=== PATIENT | female | born 1950 | race Caucasian/White ===

== ENCOUNTER 2017-07-04 09:10 | Emergency (ER) | payer MEDICARE ==
[~2017-07-04 09:10] MED LIST: Sodium Chloride 0.9% 1,000 ML BAG ONE
[2017-07-04 10:42] LABS: #Basophils 0.1 thou/uL (0.0-0.2); #Eosinphils 0.1 thou/uL (0.0-0.7); #Lymphocytes 1.2 thou/uL (1.20-3.40); #Neutrophils 6.1 thou/uL (1.40-6.50); %Eosinophils 1.1 % (0.0-10.0); %Lymphocytes 13.9 % (21.0-51.0); %Monocytes 11.4 % (0.0-10.0); %Neutrophils 72.7 % (42.0-75.0); Hemoglobin 14.2 g/dL (12.0-16.0); Mean Corpuscular HGB CONC 31.4 g/dL (32.0-36.0); Mean Corpuscular Hemoglobin 28.6 pg (27.0-31.0); Mean Corpuscular Volume 91.1 fl (81.0-99.0); Mean Platelet Volume 8.3 fL (7.4-10.4); Platelet Count 221 thou/uL (130-400); RBC Distribution Width 16.3 % (11.5-14.5); Red Blood Cell (RBC) Count 4.97 mill/uL (4.20-5.40); White Blood Cell (WBC) Count 8.4 thou/uL (4.8-10.8)
[2017-07-04 10:47] LABS: Bilirubin Large (Negative); Blood, Urine Negative (Negative); Clarity Clear (Clear); Glucose, Urine (Dipstick) Negative (Negative); Leukocyte Negative (Negative); Nitrite Negative (Negative); Protein, Urine (Dipstick) 30 mg/dL (Neg-Trace); RBC/HPF 0-3 HPF (0-3)
--- NOTE | 2017-07-04 10:47 | RAD ---
PORTABLE AP CHEST XRAY: DATE: 07/04/17. HISTORY: Altered mental status. COMPARISON: 06/24/05. FINDINGS: Cardiac silhouette is magnified by projection. Pulmonary vasculature is within normal limits. The lungs are clear. The osseous structures are intact. IMPRESSION: No acute cardiopulmonary process. POS: [facility]
[2017-07-04 10:48] LABS: WBC/HPF 0-3 HPF (0-3)
[2017-07-04 10:49] LABS: Bacteria/HPF Rare-Few HPF (None Seen)
[2017-07-04 11:08] LABS: ALT (SGPT) 21 U/L (8-55); AST (SGOT) 21 U/L (5-34); Albumin 3.7 g/dL (3.4-4.8); Alkaline Phosphatase 146 U/L (40-150); Anion Gap 17 mmol/L (10-20); BUN (Urea Nitrogen) 12 mg/dL (9.8-20.1); Bilirubin, Total 1.7 mg/dL (0.2-1.2); CK (CPK) 24 U/L (29-168); Calc. Creatinine Clearance 0 mL/min (70-130); Calcium 9.8 mg/dL (7.8-10.44); Carbon Dioxide 23 mmol/L (23-31); Chloride 105 mmol/L (98-107); Estimated GFR-MDRD 84; Globulin 2.9 g/dL (2.4-3.5); Glucose 98 mg/dL (80-115); Lipase 23 U/L (8-78); Protein, Total 6.6 g/dL (6.0-8.3); Sodium 142 mmol/L (136-145)
[2017-07-04 11:19] LABS: Potassium 2.7 mmol/L (3.5-5.1)
[2017-07-04 11:21] LABS: Troponin I Less than 0.010 ng/mL (< 0.028)
[2017-07-04] MEDS ORDERED: NS 0.9% w/ 40 MEQ KCL 1,000 ML IV ONE (12:04)
[2017-07-04] MEDS ORDERED: Ondansetron HCl/PF 4 MG/2 ML Vial ONE (12:06)
[2017-07-04] MEDS ORDERED: Potassium Chloride 20 MEQ TAB ONE (12:06)
--- NOTE | 2017-07-04 13:33 | CT ---
HEAD CT WITHOUT CONTRAST: DATE: 07/04/17. COMPARISON: None. HISTORY: Altered mental status, falls. TECHNIQUE: Serial axial CT imaging at 5 mm intervals from vertex through the skull base without contrast. FINDINGS: Imaged paranasal sinuses/mastoid air cells appear well aerated. There is no displaced calvarial fra cture. No intracranial hemorrhage, midline shift, mass effect, or ventricular enlargement. Dural c alcification is noted in the posterior fossa. There is atherosclerotic calcification of the caverno us carotid arteries and distal vertebral arteries. IMPRESSION: No intracranial hemorrhage or displaced calvarial fracture. POS: [facility]
== END 2017-07-04 18:00 | disposition home or self-care (01) ==
LOC: MADERS 09:10
DX: E87.6 Hypokalemia (principal); J44.9 Chronic obstructive pulmonary disease, unspecified; E10.9 Type 1 diabetes mellitus without complications; I10 Essential (primary) hypertension
CPT/HCPCS: 36415; 51701; 70450; 71010; 80053; 81001; 82150; 82553; 83690; 84443; 84484; 85025; 87040; 87086; 93005; 96374; A4353; J2405; J7050

== ENCOUNTER 2017-08-11 12:00 | Emergency (ER) | payer MEDICARE ==
[2017-08-11] MEDS ORDERED: Dextrose 50% Abboject 50 ML SYRINGE ONE (12:21)
[2017-08-11 13:04] LABS: #Basophils 0.1 thou/uL (0.0-0.2); #Eosinphils 0.1 thou/uL (0.0-0.7); #Lymphocytes 1.2 thou/uL (1.20-3.40); #Monocytes 0.6 thou/uL (0.11-0.59); #Neutrophils 5.6 thou/uL (1.40-6.50); %Basophils 0.9 % (0.0-1.0); %Eosinophils 0.8 % (0.0-10.0); %Lymphocytes 15.5 % (21.0-51.0); %Monocytes 8.3 % (0.0-10.0); %Neutrophils 74.4 % (42.0-75.0); Hemoglobin 14.7 g/dL (12.0-16.0); Mean Corpuscular HGB CONC 31.5 g/dL (32.0-36.0); Mean Platelet Volume 7.7 fL (7.4-10.4); Platelet Count 247 thou/uL (130-400); RBC Distribution Width 17.5 % (11.5-14.5); Red Blood Cell (RBC) Count 5.09 mill/uL (4.20-5.40); White Blood Cell (WBC) Count 7.5 thou/uL (4.8-10.8)
[2017-08-11 13:15] LABS: Anion Gap 19 mmol/L (10-20); BUN (Urea Nitrogen) 31 mg/dL (9.8-20.1); Calc. Creatinine Clearance 0 mL/min (70-130); Calcium 10.3 mg/dL (7.8-10.44); Carbon Dioxide 24 mmol/L (23-31); Chloride 105 mmol/L (98-107); Estimated GFR-MDRD 54; Potassium 4.2 mmol/L (3.5-5.1); Sodium 144 mmol/L (136-145)
[2017-08-11 13:19] LABS: Glucose 25 mg/dL (80-115)
== END 2017-08-11 14:03 | disposition home or self-care (01) ==
LOC: MADERS 12:00
DX: E10.649 Type 1 diabetes mellitus with hypoglycemia without coma (principal); J44.9 Chronic obstructive pulmonary disease, unspecified; I10 Essential (primary) hypertension
CPT/HCPCS: 36416; 80048; 85025; 96374

== ENCOUNTER 2017-08-20 09:21 | Emergency (ER) | payer MEDICARE ==
[2017-08-20] MEDS ORDERED: Dextrose 50% Abboject 50 ML SYRINGE ONE ×2 (09:47→11:03)
[2017-08-20 10:06] LABS: Band 1 % (5-11); Hemoglobin 16.3 g/dL (12.0-16.0); Lymphocytes 18 % (21-51); MDiff Complete? YES; Mean Corpuscular HGB CONC 32.8 g/dL (32.0-36.0); Mean Corpuscular Hemoglobin 29.8 pg (27.0-31.0); Mean Platelet Volume 8.3 fL (7.4-10.4); Monocytes 9 % (0-10); Neutrophil 72 % (42-75); PLT Morphology Comment Appears Adequate; Platelet Count 233 thou/uL (130-400); RBC Distribution Width 17.6 % (11.5-14.5); Red Blood Cell (RBC) Count 5.45 mill/uL (4.20-5.40); White Blood Cell (WBC) Count 12.8 thou/uL (4.8-10.8)
[2017-08-20 10:20] LABS: ALT (SGPT) 157 U/L (8-55); AST (SGOT) 66 U/L (5-34); Albumin 3.8 g/dL (3.4-4.8); Alkaline Phosphatase 180 U/L (40-150); Anion Gap 19 mmol/L (10-20); BUN (Urea Nitrogen) 43 mg/dL (9.8-20.1); Bilirubin, Total 0.6 mg/dL (0.2-1.2); CK (CPK) 15 U/L (29-168); CRP (Inflammatory) Less than 0.50 mg/dL (= or < 0.5); Calc. Creatinine Clearance 0 mL/min (70-130); Calcium 10.8 mg/dL (7.8-10.44); Carbon Dioxide 24 mmol/L (23-31); Chloride 103 mmol/L (98-107); Estimated GFR-MDRD 52; Globulin 2.8 g/dL (2.4-3.5); Lipase 67 U/L (8-78); Potassium 5.1 mmol/L (3.5-5.1); Protein, Total 6.6 g/dL (6.0-8.3); Sodium 141 mmol/L (136-145)
[2017-08-20 10:22] LABS: CKMB 1.4 ng/mL (0-6.6); Troponin I Less than 0.010 ng/mL (< 0.028)
--- NOTE | 2017-08-20 10:36 | RAD ---
CHEST ONE VIEW HISTORY: Hypoglycemia. Dyspnea. COMPARISON: 07/04/2017 FINDINGS: Cardiac silhouette is magnified by projection. Shallow inspiration accentuates pulmonary markings. There is no lobar consolidation or evidence of pneumothorax. IMPRESSION: No active cardiopulmonary abnormalities are demonstrated. POS: [facility]
[2017-08-20 10:37] LABS: Glucose 36 mg/dL (80-115)
[2017-08-20 10:42] LABS: Bilirubin Negative (Negative); Blood, Urine Negative (Negative); Clarity Hazy (Clear); Glucose, Urine (Dipstick) Negative (Negative); Leukocyte Small (Negative); Nitrite Negative (Negative); Protein, Urine (Dipstick) Negative (Neg-Trace); RBC/HPF 0-3 HPF (0-3); Specific Gravity, Urine 1.015 (1.005-1.030); Urobilinogen 0.2 mg/dL (0.2-1.0); pH, Urine 7.5 (5.0-9.0)
[2017-08-20 10:43] LABS: Bacteria/HPF 3+ HPF (None Seen)
[2017-08-20 11:08] LABS: PTT 24.5 SEC (22.9-36.1); Prothrombin Time 13.1 SEC (12.0-14.7)
[2017-08-20] MEDS ORDERED: Nitrofurantoin Monohyd/M-Cryst 100 MG CAP ONE (11:11)
== END 2017-08-20 12:12 | disposition short-term general hospital (02) ==
LOC: MADERS 09:21
DX: E10.649 Type 1 diabetes mellitus with hypoglycemia without coma (principal); N39.0 Urinary tract infection, site not specified; I10 Essential (primary) hypertension; I25.10 Atherosclerotic heart disease of native coronary artery without angina pectoris; M10.9 Gout, unspecified; J44.9 Chronic obstructive pulmonary disease, unspecified; Z79.899 Other long term (current) drug therapy
CPT/HCPCS: 36416; 51701; 71010; 80053; 81001; 82150; 82550; 82553; 83690; 83880; 84443; 84484; 85025; 85610; 85730; 86140; 87040; 87077; 87086; 87149; 87186; 93005; 96374; 96376; A4353

== ENCOUNTER 2017-11-07 12:02 | Outpatient (CLI) | payer MEDICARE ==
[2017-11-07 13:38] LABS: #Eosinphils 0.1 thou/uL (0.0-0.7); #Lymphocytes 1.2 thou/uL (1.20-3.40); #Monocytes 0.5 thou/uL (0.11-0.59); #Neutrophils 2.7 thou/uL (1.40-6.50); %Basophils 0.4 % (0.0-1.0); %Lymphocytes 26.5 % (21.0-51.0); %Monocytes 10.4 % (0.0-10.0); %Neutrophils 60.8 % (42.0-75.0); Hemoglobin 12.7 g/dL (12.0-16.0); Mean Corpuscular HGB CONC 31.6 g/dL (32.0-36.0); Mean Corpuscular Hemoglobin 30.4 pg (27.0-31.0); Mean Corpuscular Volume 96.2 fl (81.0-99.0); Platelet Count 190 thou/uL (130-400); RBC Distribution Width 14.7 % (11.5-14.5); Red Blood Cell (RBC) Count 4.17 mill/uL (4.20-5.40); White Blood Cell (WBC) Count 4.5 thou/uL (4.8-10.8)
[2017-11-07 13:50] LABS: ALT (SGPT) 18 U/L (8-55); AST (SGOT) 14 U/L (5-34); Albumin 3.8 g/dL (3.4-4.8); Alkaline Phosphatase 115 U/L (40-150); Anion Gap 14 mmol/L (10-20); BUN (Urea Nitrogen) 14 mg/dL (9.8-20.1); Bilirubin, Total 0.8 mg/dL (0.2-1.2); Calc. Creatinine Clearance 0 mL/min (70-130); Calcium 9.6 mg/dL (7.8-10.44); Carbon Dioxide 24 mmol/L (23-31); Chloride 108 mmol/L (98-107); Estimated GFR-MDRD 69; Globulin 2.6 g/dL (2.4-3.5); Glucose 112 mg/dL (80-115); Potassium 3.3 mmol/L (3.5-5.1); Protein, Total 6.4 g/dL (6.0-8.3); Sodium 143 mmol/L (136-145)
== END 2017-11-07 12:03 | disposition home or self-care (01) ==
LOC: MADLAB 12:02
PROVIDERS: ATTEND Pediatrics
DX: E87.6 Hypokalemia (principal); I11.0 Hypertensive heart disease with heart failure; I50.9 Heart failure, unspecified
CPT/HCPCS: 36415; 80053; 85025

== ENCOUNTER 2017-12-27 11:42 | Outpatient (CLI) | payer MEDICARE ==
[2017-12-27 11:49] LABS: Anion Gap 15 mmol/L (10-20); BUN (Urea Nitrogen) 14 mg/dL (9.8-20.1); Calc. Creatinine Clearance 0 mL/min (70-130); Carbon Dioxide 25 mmol/L (23-31); Chloride 108 mmol/L (98-107); Estimated GFR-MDRD 72; Glucose 103 mg/dL (80-115); Potassium 3.4 mmol/L (3.5-5.1); Sodium 145 mmol/L (136-145)
[2017-12-27 11:50] LABS: #Eosinphils 0.1 thou/uL (0.0-0.7); #Lymphocytes 0.8 thou/uL (1.20-3.40); #Monocytes 0.5 thou/uL (0.11-0.59); #Neutrophils 2.5 thou/uL (1.40-6.50); %Basophils 0.4 % (0.0-1.0); %Lymphocytes 20.5 % (21.0-51.0); %Monocytes 11.7 % (0.0-10.0); %Neutrophils 65.5 % (42.0-75.0); Hemoglobin 13.4 g/dL (12.0-16.0); Mean Corpuscular Hemoglobin 30.5 pg (27.0-31.0); Mean Corpuscular Volume 95.4 fl (81.0-99.0); Mean Platelet Volume 9.2 fL (7.4-10.4); Platelet Count 162 thou/uL (130-400); RBC Distribution Width 13.4 % (11.5-14.5); Red Blood Cell (RBC) Count 4.39 mill/uL (4.20-5.40); White Blood Cell (WBC) Count 3.8 thou/uL (4.8-10.8)
== END 2017-12-27 11:43 | disposition home or self-care (01) ==
LOC: MADLAB 11:42
PROVIDERS: ATTEND Pediatrics
DX: I50.9 Heart failure, unspecified (principal); E11.42 Type 2 diabetes mellitus with diabetic polyneuropathy; Z79.82 Long term (current) use of aspirin
CPT/HCPCS: 36415; 80048; 85025

== ENCOUNTER 2018-06-26 17:28 | Inpatient (IN) | payer MEDICARE ==
[~2018-06-26 17:28] MED LIST changes: +Dextrose 5 %-0.45 % NaCl 1000 ml Bag ONE; -Sodium Chloride 0.9% 1,000 ML BAG ONE
[2018-06-26 18:51] LABS: #Basophils 0.1 thou/uL (0.0-0.2); #Eosinphils 0.1 thou/uL (0.0-0.7); #Monocytes 0.9 thou/uL (0.11-0.59); #Neutrophils 7.6 thou/uL (1.40-6.50); %Basophils 0.5 % (0.0-1.0); %Eosinophils 0.8 % (0.0-10.0); %Lymphocytes 10.2 % (21.0-51.0); %Neutrophils 79.6 % (42.0-75.0); Hemoglobin 14.9 g/dL (12.0-16.0); Mean Corpuscular HGB CONC 32.4 g/dL (32.0-36.0); Mean Corpuscular Hemoglobin 30.3 pg (27.0-31.0); Mean Corpuscular Volume 93.7 fL (78.0-98.0); Mean Platelet Volume 7.4 fL (7.4-10.4); Platelet Count 233 thou/uL (130-400); White Blood Cell (WBC) Count 9.6 thou/uL (4.8-10.8)
[2018-06-26 19:05] LABS: ALT (SGPT) 16 U/L (8-55); AST (SGOT) 16 U/L (5-34); Albumin 4.2 g/dL (3.4-4.8); Alkaline Phosphatase 158 U/L (40-150); Anion Gap 14 mmol/L (10-20); BUN (Urea Nitrogen) 59 mg/dL (9.8-20.1); Bilirubin, Total 0.5 mg/dL (0.2-1.2); Calc. Creatinine Clearance 0 mL/min (70-130); Carbon Dioxide 26 mmol/L (23-31); Chloride 107 mmol/L (98-107); Estimated GFR-MDRD 34; Globulin 3.2 g/dL (2.4-3.5); Potassium 4.4 mmol/L (3.5-5.1); Protein, Total 7.4 g/dL (6.0-8.3); Sodium 143 mmol/L (136-145)
[2018-06-26 19:16] LABS: Glucose 46 mg/dL (80-115)
[2018-06-26] MEDS ORDERED: Dextrose 50% Abboject 50 ML SYRINGE ONE (19:19)
[2018-06-26] MEDS ORDERED: Enoxaparin Sodium 40 MG/0.4 ML SYRINGE ONE (22:18)
[2018-06-26] MEDS ORDERED: Gabapentin 100 MG CAP ONE ×2 (22:59→23:25)
[2018-06-26] MEDS ORDERED: Gabapentin 300 MG CAP PO SCH (23:15)
[2018-06-27] MEDS ORDERED: Ondansetron ODT 4 MG TAB PO PRN (01:06)
[2018-06-27] MEDS ORDERED: Bisacodyl 5 MG TAB PO PRN (01:06)
[2018-06-27] MEDS ORDERED: Bisacodyl 10 MG SUPP PR PRN (01:06)
[2018-06-27] MEDS ORDERED: Promethazine 25 MG TAB PO PRN (01:16)
[2018-06-27] MEDS: Acetaminophen 325 MG TAB PO PRN ×3 (01:18→18:11)
[2018-06-27] MEDS: HYDROcodone/Acetaminophen 5/325 mg Tablet PO PRN ×3 (03:34→23:40)
[2018-06-27] MEDS: Dextrose 5 %-0.45 % NaCl 1,000 ML IV SCH ×3 (03:48→13:07)
[2018-06-27] MEDS: Levothyroxine Sodium 50 MCG TAB PO SCH (06:05)
[2018-06-27] MEDS ORDERED: Spironolactone 25 MG TAB PO SCH (08:00)
[2018-06-27] MEDS ORDERED: predniSONE 5 MG TAB PO SCH (08:00)
[2018-06-27] MEDS ORDERED: Estradiol 1 MG TAB PO SCH (09:00)
[2018-06-27] MEDS: Gabapentin 300 MG CAP PO SCH ×3 (09:00→20:52)
[2018-06-27] MEDS ORDERED: Amitriptyline HCl 25 MG TAB PO SCH (09:00)
[2018-06-27] MEDS ORDERED: Furosemide 40 MG TAB PO SCH (09:00)
[2018-06-27] MEDS: tiZANidine HCl 4 MG TAB PO SCH (14:40)
[2018-06-27] MEDS ORDERED: Mag-Al 1200 mg/1200 mg/30 ML UDCUP PO PRN (16:37)
[2018-06-27] MEDS ORDERED: Mag-Al 1200 mg/1200 mg/30 ML UDCUP PO SCH (16:45)
[2018-06-27] MEDS ORDERED: Mag-Al Plus 1200 MG/1200 MG/120 MG/30 ML UDCUP PO PRN (17:29)
[2018-06-27] MEDS: Enoxaparin Sodium 40 MG/0.4 ML SYRINGE SC SCH (20:51)
[2018-06-27] MEDS: Amitriptyline HCl 25 MG TAB PO SCH (20:51)
[2018-06-27] MEDS ORDERED: Gabapentin 300 MG CAP PO SCH (21:00)
--- NOTE | 2018-06-28 00:41 | HP ---
ATTENDING: Inga Benson M.D. PRIMARY CARE PHYSICIAN: Dr. Ajith Guevara of [place]. REASON FOR ADMISSION: Persistent hypoglycemia. HISTORY OF PRESENT ILLNESS AND HOSPITAL COURSE: Ms. Beavers is a very pleasant 68-year-old female who went to the ER on the night of 06/26/2018 with altered mental status. On further examination, the patient was notably hypoglycemic, was found to have a blood sugar in the 30s via EMS. The patient was given en route with D50 and some improvement of symptoms were noted. Blood glucose subsequently dropped again in the ER down to 46. The patient was placed on D5 IVF and blood sugar went up to 60s. On initial presentation, her vital signs were recorded as follows: Blood pressure of 179/105, pulse 86, respirations 22, temperature 97.1, O2 sats 100% at room air. Blood pressure went down to 126/72 with pulse rate of 89, respiration rate 18, temperature of 98.3, and O2 sats at room temperature of 99 prior to transfer to the floor. Other tests done in the ER include EKG with normal sinus rhythm at 81 beats per minute, RBBB, with Nonspecific ST changes. Cardiac enzymes are within normal limits. On further examination in the ER, patient's blood glucose remained in the 50s-60s at most, even with meals. The patient reports to have significant improvement with overall cognitive function and mental status was deemed to be at baseline in the ER, but her sugar has been persistently lower than normal. Patient history of diabetes, use of insulin nor use of oral hypoglycemics of any kind. Her medications were reviewed from the ER and there was medications that could possibly affect patient's apparent severe hypoglycemic episode. The patient was then admitted for further observation in [facility]. Of note, the patient has history of diabetes in the past per records, but had not been on any oral hypoglycemics nor insulin over the past year. The patient is not a poor historian. Information was retrieved from the records per [facility]. Per records, the patient also had similar episodes in the past that requires ER visis and hospitalization for couple of times in [facility] in [place] The first episode was in 08/2017 and she was admitted by the hospitalist at [facility]. At that time , a comprehensive evaluation has been done for this and all the tests and imaging studies were unremarkable except for C-peptide elevation at 7.[address] of the abdomen at that time with and without contrast obtained for pancreatic protocol showed no enhancing mass seen in the pancreas. At that time patient was also treated for UTI. The patient's symptoms,including her blood sugar at that time, had improved and was discharged without further recommendations. She was again admitted on 2016 at [facility] for another altered mental status episode associated with hypoglycemia After treating the other diagnosis associated with it, the patient's blood sugars did well and was sent home without issues again. Upon admission in [facility],the patient was placed on D5 IVF continuously overnight and her blood sugar was closely monitored every 2-4 hours. Her blood sugar overnight per report runs from 60s-106 with one low episode of 52 at around 2:18 a.m. Current blood sugar is 73 at 6:31 a.m. The patient when seen this morning was awake, alert, oriented. There was some gap in her memory when ask some information about her medical history and her medications, otherwise she appears to be in her baseline mental status. She is eating, voiding and no other issues reported at this time. She is asymptomatic. We have questions regarding patient's home medications, but patient could not recall any of her medications nor confirm her medications per list.She reports her PCP was Dr Ajith Guevara in [place]. PAST MEDICAL HISTORY: Again, patient is unable to confirm her past histories, but most of the information was taken from the records. 1. Hypertension. 2. CAD. 3. Gout. 4. Hypothyroidism. 5. Anxiety. 6. Restless legs. 7. Neuropathic pains. 8. Per records, history of diabetes, currently not on medications. PAST SURGICAL HISTORY: unremarkable, Denies h/o GI surgery/lap band or gastric bypass. ALLERGIES: PENICILLIN and SULFA. MEDICATIONS: BAsed on last hospitalization list: Gabapentin 600 mg p.o. t.i.d. , omeprazole 20 mg p.o. daily, amitriptyline 25 mg p.o. daily, tizanidine 2 mg p.o. daily, Synthroid 50 mcg daily. Questionable medications are the following : estradiol 1 mg p.o. daily, Lasix 40 mg p.o. daily, spironolactone 25 mg p.o. daily. FAMILY HISTORY: Noncontributory. SOCIAL HISTORY: The patient is . She is nonsmoker. Denies alcohol drink or illicit drug use. REVIEW OF SYSTEMS: General: Denies fever or chills. Reports fatigue and general weakness which is better this morning. HEENT: No acute visual changes or hearing changes, cold symptoms. Respiratory: No shortness of breath, sputum production, bloody sputum, pain with breathing or cough. Cardiac: Denies chest pain, dyspnea on exertion, pain with breathing, orthopnea. Reports she has an intermittent leg swelling from volume retention. GI: No nausea, vomiting, abdominal pain, diarrhea, constipation. Genitourinary: No dysuria, hematuria, frequency, urgency or incontinence. Musculoskeletal: Reports chronic intermittent joint pains, stiffness and leg cramps/pain. Denies joint effusions or erythema. Neurologic: Denies seizure activities,tics , tremors, focal numbness, focal weakness, headaches. Psychiatric: Reports anxiety. Denies hallucinations, insomnia, suicidal thoughts or ideations. Endocrine: Denies polydipsia, polyphagia, polyuria, heat or cold intolerance. Reports history of thyroid issues. Skin: No rashes, no lesions. Denies nonhealing ulcers. LABORATORY DATA: Current labs, WBC 9.6, hemoglobin 14.9, hematocrit 45.9, platelets 233. Sodium 143, potassium 4.4, BUN 59, creatinine 1.53, estimated GFR 34, glucose 46, calcium 10. Liver function tests within normal limits except for alkaline phosphatase 158, albumin 4.2. PHYSICAL EXAMINATION: VITAL SIGNS: Blood pressure 130/68, temperature 98, pulse 88, respiration rate 18, O2 sats 94% room air. GENERAL: The patient is awake, alert, oriented x3, not in distress. HEENT: Normocephalic, atraumatic. PERRL. Intact EOM. Anicteric sclerae. No nystagmus. Oral mucosa is moist. NECK: Supple. No LAD, no JVD, no bruit, no thyromegaly. CHEST: Normal excursion, clear to auscultation bilaterally. CARDIAC: RRR. Normal S1 and S2. No murmurs. ABDOMEN: Flat, soft, normoactive bowel sounds, nondistended, nontender, no rebound, no guarding. Negative CVA tenderness bilaterally. EXTREMITIES: No edema, no cyanosis. SKIN: Good turgor. No rashes, no lesions, intact. PSYCHIATRIC: Appears calm with appropriate demeanor and affect. With gap in memory. ASSESSMENT: 1. Altered mental status, improved. 2. Acute severe hypoglycemia, symptomatic.Unspecified etiology. 3. Hypertension. 4. Neuropathic pain. 5. Anxiety. 6. Hypothyroidism. PLAN: The patient is clinically improving some with supportive medical management. We will continue D5 IVF and we will wean off as soon as patient's overall blood glucose and oral intake stabilized. We will continue Accu-Cheks q.6 hours and p.r.n. We will continue home medications as soon as we confirm home medications from her PCP in [place]. Blood pressure at this time is somewhat lower. We will discontinue diuretics at this point. Of note, patient was given one dose of Lasix 20 mg p.o. q.a.m. this morning. We will continue I's and O's. Dietary consult for nutritional supplements. May consider further hypoglycemic screen after we confirmed patient's home med list or if no significant improvement and possible Endo consult. Will keep patient in [facility] for now. At any point that severe hypoglycemia recurs, will highly consider transfer to Tertiary hospital if higher level of care is warranted. Gastrointestinal prophylaxis with PPI. Deep venous thrombosis prophylaxis with Lovenox. We will consider further therapy if patient is fully stabilized and remains generally weak. Further recommendations depending on the hospital course. Estimated length of stay 2-3 days. CODE STATUS: The patient reports FULL CODE. MTDD
[2018-06-28] MEDS: Dextrose 5 %-0.45 % NaCl 1,000 ML IV SCH (01:26)
[2018-06-28] MEDS: Levothyroxine Sodium 50 MCG TAB PO SCH (06:00)
[2018-06-28] MEDS: tiZANidine HCl 4 MG TAB PO SCH (08:59)
[2018-06-28] MEDS: Gabapentin 300 MG CAP PO SCH ×3 (08:59→22:09)
[2018-06-28] MEDS ORDERED: Furosemide 20 MG TAB PO SCH (09:00)
[2018-06-28 11:08] VITALS: BMI 40.1
[2018-06-28] MEDS ORDERED: Dextrose 5 %-0.45 % NaCl 1000 ml Bag ONE (11:30)
[2018-06-28] MEDS: Amitriptyline HCl 25 MG TAB PO SCH (22:10)
[2018-06-28] MEDS: Enoxaparin Sodium 40 MG/0.4 ML SYRINGE SC SCH (22:13)
[2018-06-29] MEDS: HYDROcodone/Acetaminophen 5/325 mg Tablet PO PRN ×3 (03:50→23:10)
[2018-06-29 05:52] LABS: Anion Gap 12 mmol/L (10-20); BUN (Urea Nitrogen) 34 mg/dL (9.8-20.1); Calc. Creatinine Clearance 85 mL/min (70-130); Calcium 9.8 mg/dL (7.8-10.44); Carbon Dioxide 24 mmol/L (23-31); Chloride 110 mmol/L (98-107); Estimated GFR-MDRD 62; Glucose 110 mg/dL (80-115); Potassium 4.2 mmol/L (3.5-5.1); Sodium 142 mmol/L (136-145)
[2018-06-29] MEDS: Levothyroxine Sodium 50 MCG TAB PO SCH (06:03)
[2018-06-29 06:07] LABS: Thyroid Stimulating Hormone 2.5401 uIU/mL (0.35-4.94)
[2018-06-29] MEDS: tiZANidine HCl 4 MG TAB PO SCH (08:39)
[2018-06-29] MEDS: Gabapentin 300 MG CAP PO SCH ×3 (08:39→21:27)
[2018-06-29 12:39] LABS: Free T4 (Free Thyroxine) 0.83 ng/dL (0.70-1.48)
[2018-06-29] MEDS: Enoxaparin Sodium 40 MG/0.4 ML SYRINGE SC SCH (21:26)
[2018-06-29] MEDS: Amitriptyline HCl 25 MG TAB PO SCH (21:26)
[2018-06-30] MEDS: Acetaminophen 325 MG TAB PO PRN (01:14)
[2018-06-30] MEDS: HYDROcodone/Acetaminophen 5/325 mg Tablet PO PRN (03:59)
[2018-06-30] MEDS: Levothyroxine Sodium 50 MCG TAB PO SCH (06:08)
[2018-06-30 07:37] VITALS: BP 110/55; TEMP 97.4
[2018-06-30] MEDS: tiZANidine HCl 4 MG TAB PO SCH (08:50)
[2018-06-30] MEDS: Gabapentin 300 MG CAP PO SCH (08:50)
== END 2018-06-30 11:35 | disposition swing bed (61) | DRG 639 ==
LOC: MADERS 17:28 → MADMS 20:30
PROVIDERS: ADMIT Family Medicine; ATTEND Family Medicine
DX: E10.649 Type 1 diabetes mellitus with hypoglycemia without coma (principal); I45.10 Unspecified right bundle-branch block; I10 Essential (primary) hypertension; I25.10 Atherosclerotic heart disease of native coronary artery without angina pectoris; E03.9 Hypothyroidism, unspecified; F41.9 Anxiety disorder, unspecified; M10.9 Gout, unspecified; G25.81 Restless legs syndrome; J44.9 Chronic obstructive pulmonary disease, unspecified
CPT/HCPCS: 36415; 36416; 80048; 80053; 84439; 84443; 84484; 85025; 93005; 96361; 96372; 96374; A4216; G8978-GP-CK; G8979-GP-CI; G8987-GO-CK; G8988-GO-CH; J1650; J7042

== ENCOUNTER 2018-06-30 10:12 | Inpatient (IN) | payer MEDICARE ==
[2018-06-30] MEDS ORDERED: tiZANidine HCl 4 MG TAB PO SCH (14:00)
[2018-06-30] MEDS ORDERED: Ondansetron ODT 4 MG TAB PO PRN (14:06)
[2018-06-30] MEDS ORDERED: Mag-Al Plus 1200 MG/1200 MG/120 MG/30 ML UDCUP PO PRN (14:06)
[2018-06-30] MEDS ORDERED: Bisacodyl 10 MG SUPP PR PRN (14:06)
[2018-06-30] MEDS: Gabapentin 300 MG CAP PO SCH ×2 (15:53→20:21)
[2018-06-30] MEDS: Amitriptyline HCl 25 MG TAB PO SCH (20:21)
[2018-07-01] MEDS: HYDROcodone/Acetaminophen 5/325 mg Tablet PO PRN ×2 (00:48→16:21)
[2018-07-01] MEDS: Levothyroxine Sodium 50 MCG TAB PO SCH (05:11)
[2018-07-01] MEDS: tiZANidine HCl 4 MG TAB PO SCH ×2 (05:12→14:49)
[2018-07-01] MEDS: Gabapentin 300 MG CAP PO SCH ×3 (08:13→20:27)
[2018-07-01] MEDS ORDERED: Non-Formulary Item 1 EACH (Tizanidine Hcl [Tizanidine Hcl] 2 MG) PO SCH (09:00)
[2018-07-01] MEDS: Amitriptyline HCl 25 MG TAB PO SCH (20:27)
[2018-07-02] MEDS: tiZANidine HCl 4 MG TAB PO SCH ×2 (05:57→13:54)
[2018-07-02] MEDS: Levothyroxine Sodium 50 MCG TAB PO SCH (05:57)
[2018-07-02] MEDS: Gabapentin 300 MG CAP PO SCH ×3 (08:18→20:38)
[2018-07-02] MEDS: HYDROcodone/Acetaminophen 5/325 mg Tablet PO PRN ×2 (12:05→16:37)
[2018-07-02] MEDS: Acetaminophen 325 MG TAB PO PRN (13:53)
[2018-07-02] MEDS: Amitriptyline HCl 25 MG TAB PO SCH (20:38)
[2018-07-03] MEDS: HYDROcodone/Acetaminophen 5/325 mg Tablet PO PRN ×3 (01:11→14:23)
[2018-07-03] MEDS: tiZANidine HCl 4 MG TAB PO SCH ×2 (06:23→14:02)
[2018-07-03] MEDS: Levothyroxine Sodium 50 MCG TAB PO SCH (06:23)
[2018-07-03] MEDS: Gabapentin 300 MG CAP PO SCH ×3 (08:39→21:08)
[2018-07-03] MEDS ORDERED: methylPREDNISolone 4 mg Tablet PO SCH (18:15)
[2018-07-03] MEDS: methylPREDNISolone 4 mg Tablet PO SCH ×2 (19:38→21:45)
[2018-07-03] MEDS: Amitriptyline HCl 25 MG TAB PO SCH (21:08)
[2018-07-04] MEDS: HYDROcodone/Acetaminophen 5/325 mg Tablet PO PRN ×3 (00:50→22:38)
[2018-07-04] MEDS: tiZANidine HCl 4 MG TAB PO SCH ×2 (05:21→14:24)
[2018-07-04] MEDS: Levothyroxine Sodium 50 MCG TAB PO SCH (05:21)
[2018-07-04] MEDS: methylPREDNISolone 4 mg Tablet PO SCH ×3 (08:30→17:35)
[2018-07-04] MEDS: Gabapentin 300 MG CAP PO SCH ×3 (08:30→21:05)
[2018-07-04] MEDS ORDERED: methylPREDNISolone 4 mg Tablet PO SCH (21:00)
[2018-07-04] MEDS: Amitriptyline HCl 25 MG TAB PO SCH (21:05)
[2018-07-05] MEDS: tiZANidine HCl 4 MG TAB PO SCH ×2 (05:07→14:05)
[2018-07-05] MEDS: Levothyroxine Sodium 50 MCG TAB PO SCH (05:07)
[2018-07-05] MEDS: Gabapentin 300 MG CAP PO SCH ×3 (08:20→20:44)
[2018-07-05] MEDS: methylPREDNISolone 4 mg Tablet PO SCH ×4 (08:20→20:44)
[2018-07-05] MEDS: Acetaminophen 325 MG TAB PO PRN (14:41)
[2018-07-05] MEDS: HYDROcodone/Acetaminophen 5/325 mg Tablet PO PRN (16:49)
[2018-07-05] MEDS: Amitriptyline HCl 25 MG TAB PO SCH (20:44)
[2018-07-06] MEDS: HYDROcodone/Acetaminophen 5/325 mg Tablet PO PRN (00:11)
[2018-07-06] MEDS: Acetaminophen 325 MG TAB PO PRN ×2 (03:38→21:19)
[2018-07-06] MEDS: Levothyroxine Sodium 50 MCG TAB PO SCH (05:22)
[2018-07-06] MEDS: tiZANidine HCl 4 MG TAB PO SCH ×2 (05:22→12:48)
[2018-07-06] MEDS: methylPREDNISolone 4 mg Tablet PO SCH ×3 (08:32→17:25)
[2018-07-06] MEDS: Gabapentin 300 MG CAP PO SCH ×3 (08:32→19:59)
[2018-07-06] MEDS: Amitriptyline HCl 25 MG TAB PO SCH (19:59)
[2018-07-06] MEDS ORDERED: ALPRAZolam 0.25 MG TAB PO SCH (23:45)
[2018-07-07] MEDS: Acetaminophen 325 MG TAB PO PRN (04:46)
[2018-07-07] MEDS: tiZANidine HCl 4 MG TAB PO SCH ×2 (05:16→14:28)
[2018-07-07] MEDS: Levothyroxine Sodium 50 MCG TAB PO SCH (05:16)
[2018-07-07] MEDS: Gabapentin 300 MG CAP PO SCH ×3 (09:02→20:13)
[2018-07-07] MEDS: methylPREDNISolone 4 mg Tablet PO SCH ×2 (09:02→17:25)
[2018-07-07] MEDS: Amitriptyline HCl 25 MG TAB PO SCH (20:13)
[2018-07-07] MEDS: HYDROcodone/Acetaminophen 5/325 mg Tablet PO PRN (23:38)
[2018-07-08] MEDS: Levothyroxine Sodium 50 MCG TAB PO SCH (05:39)
[2018-07-08] MEDS: tiZANidine HCl 4 MG TAB PO SCH ×2 (05:39→15:05)
[2018-07-08] MEDS ORDERED: methylPREDNISolone 4 mg Tablet PO SCH (08:00)
[2018-07-08] MEDS: Gabapentin 300 MG CAP PO SCH ×3 (09:10→19:59)
[2018-07-08] MEDS: Acetaminophen 325 MG TAB PO PRN (14:07)
[2018-07-08] MEDS: Amitriptyline HCl 25 MG TAB PO SCH (19:59)
[2018-07-09] MEDS: tiZANidine HCl 4 MG TAB PO SCH ×2 (05:05→14:17)
[2018-07-09] MEDS: Acetaminophen 325 MG TAB PO PRN (05:05)
[2018-07-09] MEDS: Levothyroxine Sodium 50 MCG TAB PO SCH (05:06)
[2018-07-09] MEDS: Gabapentin 300 MG CAP PO SCH ×3 (09:31→20:41)
[2018-07-09] MEDS: Amitriptyline HCl 25 MG TAB PO SCH (20:41)
[2018-07-09] MEDS: HYDROcodone/Acetaminophen 5/325 mg Tablet PO PRN (20:44)
[2018-07-10] MEDS: tiZANidine HCl 4 MG TAB PO SCH ×2 (05:00→14:12)
[2018-07-10] MEDS: Levothyroxine Sodium 50 MCG TAB PO SCH (05:00)
[2018-07-10] MEDS: Gabapentin 300 MG CAP PO SCH ×3 (08:39→20:01)
[2018-07-10] MEDS: HYDROcodone/Acetaminophen 5/325 mg Tablet PO PRN (11:27)
[2018-07-10] MEDS: Acetaminophen 325 MG TAB PO PRN (14:15)
[2018-07-10] MEDS: Amitriptyline HCl 25 MG TAB PO SCH (20:02)
[2018-07-11] MEDS: HYDROcodone/Acetaminophen 5/325 mg Tablet PO PRN ×2 (00:55→22:42)
[2018-07-11] MEDS: tiZANidine HCl 4 MG TAB PO SCH ×2 (05:17→14:34)
[2018-07-11] MEDS: Levothyroxine Sodium 50 MCG TAB PO SCH (05:17)
[2018-07-11] MEDS: Gabapentin 300 MG CAP PO SCH ×3 (08:50→20:53)
[2018-07-11] MEDS: Acetaminophen 325 MG TAB PO PRN (16:50)
[2018-07-11 17:52] VITALS: BMI 48.0
[2018-07-11] MEDS: Amitriptyline HCl 25 MG TAB PO SCH (20:53)
[2018-07-12] MEDS: HYDROcodone/Acetaminophen 5/325 mg Tablet PO PRN ×2 (02:51→16:55)
[2018-07-12] MEDS: Levothyroxine Sodium 50 MCG TAB PO SCH (05:16)
[2018-07-12] MEDS: tiZANidine HCl 4 MG TAB PO SCH ×2 (05:17→14:36)
[2018-07-12 07:08] VITALS: BP 146/63; TEMP 97.4
[2018-07-12] MEDS: Gabapentin 300 MG CAP PO SCH ×2 (08:19→14:35)
--- NOTE | 2018-07-14 02:38 | DIS ---
DATE OF ADMISSION: 06/26/2018 DISCHARGED TO SWING BED: 06/30/2018 DATE OF DISCHARGE: 07/12/2018 ATTENDING: Inga Chang M.D. PRIMARY CARE PHYSICIAN: Dr. Ajith Guevara in [place] FINAL DIAGNOSES: 1. Deconditioning/general weakness. 2. Altered mental status secondary to severe hypoglycemia, drug induced from erroneously taking diab etic medications of the spouse (Januvia, metformin, and glipizide), improved. 3. Neuropathic pain. 4. Restless legs syndrome. 5. Hypothyroidism. 6. Unsteady gait 7. Social issues. DISPOSITION: Home with . Vvirueze-kt-wyn and son is the primary community development technician. DIET: Regular. ACTIVITIES: To walk with rolling walker at all times. Safety prevention/precautions. FOLLOWUP: Follow up with Dr. Guevara in 1 week. DISCHARGE INSTRUCTIONS: To go home with home health for jail, medication supervision PT, OT evaluation and treatment. HOME MEDICATIONS: Gabapentin 600 mg p.o. t.i.d., amitriptyline 25 mg p.o. at bedtime, levothyroxine 50 mcg p.o. daily, tizanidine 2 mg p.o. b.i.d. HISTORY OF PRESENT ILLNESS AND HOSPITAL COURSE: Ms. Beavers is a very pleasant 68-year-old female who was sent to the ER on 06/27/2018 secondary to altered mental status. Her initial sugar w as found to be in the 30s via EMS. She was given en route with D50 and some improvement of symptoms we noted. Her blood glucose subsequently dropped again in the ER down to 46 upon presentation. She was placed on D5 IVF and blood sugar went up to 60s. The [facility] and initially unknown cause of severe hypoglycemia. The patient was closely monitored and observed in [facility] Med/Surg floor. Of note, there was a previous similar episode s in the past that requires hospitalization in [facility] in 08/2017, at that time, hypoglycemic screen/extensive workup were obtained and was unremarkable per report. The patien t denies taking any diabetic pill at all. There was a previous history per record of diabetes, but s tates that she has been on any medications in a while and she could hardly remember having history of diabetes at all. Due to having recurrence of episodes of hypoglycemic, we talked to her spouse if gavino schmitz himself diabetes, for which he admits. We then ask the spouse to bring all his medications and pat alicia's medications in the hospital. At that time, we found the patient's pill box was mixed up with metformin, glipizide and Januvia tablets that were originally from spouse's medications. The patient admits that she has no one taking care of her medication herself and spouse's medications at the gael e time. After 72 hours of observation, the patient's blood sugar has markedly improved and stayed wi thin normal limits. No further tests nor treatment was warranted at that time secondary to known cau se of drug induced/oral hypoglycemia from erroneously taking spouse's medications. The patient was t hen extended to swing bed in [facility] post-acute stay secondary to general weakness and deconditioning. She was noted to have unsteady gait and inability to transfer or walk without signif icant help. The patient worked with rehab for a couple more weeks and did well. She was walking abo ut 300 feet with rolling walker and contact guard assist prior to discharge. On 07/12/2018, the romy ent was deemed stable to get back home, but recommended to continue rehab with home health for medica tion supervision as well. During this hospitalization, there was a concern regarding the home/social situations as caseworker intake worked on the APS for home environmental check. Staff has been in contact with the patient's family including the son and [id number]. We make sure that the family under stand what the patient should be taking at home and prior to discharge, staff had a qtrs-hi-ueho toney ly education with the [id number]-qut who will take in charge to check patient's medications. Vital signs prior to discharge: Blood pressure 146/63, temperature 97.4, pulse 72, respirations 20, O2 sat s 95% on room air. Time spent in this discharge 35 minutes in examining the patient and coordinating care.
== END 2018-07-12 18:25 | disposition home health service (06) | DRG 948 ==
LOC: MADMS 11:56
PROVIDERS: ADMIT Family Medicine; ATTEND Family Medicine
DX: R53.1 Weakness (principal); T38.3X1A Poisoning by insulin and oral hypoglycemic [antidiabetic] drugs, accidental (unintentional), initial encounter; E11.649 Type 2 diabetes mellitus with hypoglycemia without coma; G25.81 Restless legs syndrome; F41.9 Anxiety disorder, unspecified; I10 Essential (primary) hypertension; I25.10 Atherosclerotic heart disease of native coronary artery without angina pectoris; M10.9 Gout, unspecified; E03.9 Hypothyroidism, unspecified; G89.4 Chronic pain syndrome; R26.81 Unsteadiness on feet
CPT/HCPCS: 36416; G8987-GO-CK; G8988-GO-CI

== ENCOUNTER 2018-07-26 13:07 | Inpatient (IN) | payer MEDICARE ==
[2018-07-26 14:47] VITALS: BMI 33.7
[2018-07-26] MEDS ORDERED: Bisacodyl 10 MG SUPP PR PRN (16:19)
[2018-07-26] MEDS ORDERED: Clindamycin 150 MG CAP PO SCH (17:00)
[2018-07-26] MEDS ORDERED: Emollient 15 oz bottle 450 ML, Triamcinolone Acetonide 200 MG TOP PRN (19:35)
[2018-07-26] MEDS: hydrOXYzine 25 MG TAB PO PRN (19:39)
[2018-07-26] MEDS: Clindamycin 150 MG CAP PO SCH (20:39)
[2018-07-26] MEDS: Gabapentin 300 MG CAP PO SCH (20:41)
[2018-07-26] MEDS: Amitriptyline HCl 25 MG TAB PO SCH (20:41)
[2018-07-26] MEDS: Emollient 15 oz bottle 450 ML, Triamcinolone Acetonide 200 MG TOP SCH (20:41)
[2018-07-27] MEDS: Acetaminophen 325 MG TAB PO PRN (01:27)
[2018-07-27] MEDS: tiZANidine HCl 4 MG TAB PO SCH ×2 (05:57→14:39)
[2018-07-27] MEDS: Levothyroxine Sodium 50 MCG TAB PO SCH (06:08)
[2018-07-27] MEDS: Clindamycin 150 MG CAP PO SCH ×2 (08:38→14:38)
[2018-07-27] MEDS: Saccharomyces boulardii 250 MG CAP PO SCH (08:38)
[2018-07-27] MEDS: Gabapentin 300 MG CAP PO SCH ×3 (08:38→21:10)
[2018-07-27] MEDS: Emollient 15 oz bottle 450 ML, Triamcinolone Acetonide 200 MG TOP SCH ×2 (08:39→21:11)
--- NOTE | 2018-07-27 13:26 | HP ---
DATE OF ADMISSION: 07/26/2018 ATTENDING: Dr. Chang. PRIMARY CARE PHYSICIAN: Ajith Guevara MD REASON FOR ADMISSION: Deconditioning general weakness after recent hospitalization. HISTORY OF PRESENT ILLNESS AND HOSPITAL COURSE: Ms. Beavers is a 68-year-old female who was recently admitted here in [facility] for acute onset of hypoglycemia, deemed to be secondary to inadvertently taking her 's oral hypoglycemic agents. She was then transferred to skilled rehabilitation in [place] after the acute hospitalization and was discharged on 07/12/2018 at home with her . Patient went back to [facility] ER on 07/21/2018 with complaint that she has been somewhat declining since the time that she has been home. Patient and are poor historian. Most of the information in the history were taken from the hospital records. She was noted to be profoundly weak and unable to walk at the time of presentation in the ER per report. Apparently, the patient was also noted to have leg swelling associated with redness. At that time, her blood pressure was also noted to be elevated in the 200 systolic pressure per records. The patient was subsequently admitted and was treated with IV antibiotic therapy. Prior to discharge, patient on 07/26/2018, patient's IV antibiotic was changed to clindamycin p.o. When she was admitted in [place] last month, she does not know what her current medications are. At that time, there were no antihypertensives that she was taking at home per review from her medications the brought. Although prior to that, she was supposed to be on diuretics. Her blood pressure at the time of admission has been stable, less than 140/90. She was monitored for this and had not been started on an antihypertensive at all until discharge. Apparently when she followed up with her PCP, Dr. Ajith Guevara in [place], she was started back on spironolactone. Her spironolactone was continued at that time she was readmitted to [facility]. There was also report that the gabapentin and tizanidine for her chronic neuropathic pain/restless leg syndrome, has been on hold since admission. During this admission from [facility], there was questionable metabolic encephalopathy that was related to blood pressure. Overall mental status has improved over the hospital course. I could not see a discharge summary per [facility] at this time per [facility]. When we admitted the patient back to [place], she seems to be in her baseline mental status. She had knowledge of her recent hospitalization, but could not give any detail when it comes to the diagnosis and medications. When evaluated on the floor, patient has reported no significant leg swelling, no redness at this point. She reports that there was recurrence of her hand swelling and redness that had spontaneously resolved over the course of the hospital. Of note, the patient was previously treated here in [facility] last time with the left osteoarthritis, presented as joint swelling and redness as well as pain as well. At that time, patient responded well with oral dose of Medrol Phong. No new other concerns at this point, patient just reports that she still feels weak and spouse was at bedside at the time of exam reports that patient could hardly walk at this point, thus needing a therapy. PAST MEDICAL HISTORY: Hypothyroidism, CAD, gout, hypertension, neuropathic pain , restless leg syndrome, chronic low back pain, previously followed by pain management in [place]. There was a remote history of hypertension. History of anxiety. PAST SURGICAL HISTORY: Unremarkable. SOCIAL HISTORY: Patient is , nonsmoker, nondrinker, nonalcoholic, nondrug user. 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 FAMILY HISTORY: Noncontributory. ALLERGIES: SULFA. MEDICATIONS: Amitriptyline 25 mg p.o. daily, tizanidine 2 mg p.o. b.i.d., levothyroxine 50 mcg p.o. daily, Neurontin 300 mg p.o. t.i.d., clindamycin 450 mg p.o. t.i.d., clonidine 0.1 mg p.o. q.4. hours p.r.n. for blood pressure greater than 180/105, Synthroid 50 mcg q.a.m., Florastor 250 mg p.o. daily, Bisacodyl 10 mg per rectum daily p.r.n. and Tylenol 650 mg p.o. q.6 hours p.r.n. REVIEW OF SYSTEMS: General: Denies fever or chills. Reports fatigue and general weakness. HEENT: No acute visual changes or hearing changes. Respiratory: No shortness of breath, sputum production, chronic cough, wheezing. Cardiac: No chest pain, leg edema, no cyanosis, no dyspnea on exertion. Gastrointestinal: No nausea, vomiting, abdominal pain, diarrhea. Reports constipation, no rectal bleeding. Genitourinary: No dysuria, hematuria , frequency, urgency or incontinence. Musculoskeletal: Reports intermittent swelling, arthritic pain and myalgia. Neurologic: No focal numbness, focal weakness. Reports neuropathic pains mostly of both legs/feet. Psychiatric: Reports anxiety. Denies depression, hallucinations, suicidal thoughts, ideations or plans. PHYSICAL EXAMINATION: VITAL SIGNS: Blood pressure 147/67, temperature 98.2, pulse 86, respirations 20 , O2 sats 93% at room air. Weight 202 pounds and 14 ounces. GENERAL: The patient is awake, alert, oriented x3, not in distress, answers simple questions with appropriateness, but slow to answer. Refers to spouse for most of the questions regarding self-information, especially medical information. HEENT: Normocephalic, atraumatic. PERRL, intact EOM. Anicteric sclerae. Oral mucosa is moist. NECK: Supple. No LAD, no JVD, no bruit. CHEST: Normal excursion, clear to auscultation bilaterally. HEART: RRR. Normal S1 and S2. No murmurs. ABDOMEN: Obese, soft, normoactive bowel sounds, nondistended, nontender, no rebound, no guarding. Negative CVA tenderness. EXTREMITIES: No edema, no cyanosis, no obvious joint effusions. No erythema. No petechiae, no clubbing. NEUROLOGIC: Nonfocal. Gait unsteady. PSYCHIATRIC: Appears calm with appropriate demeanor and affect. On 07/21/2018: Chest x-ray, no acute cardiopulmonary disease. Brain CT, no acute intracranial hemorrhage, mass effect with mild chronic ischemic disease, mild prominence of the ventricular system, likely related to ex-vacuo dilatation given the degree of parenchymal atrophy. On 07/21/2018: Hand x-ray, osteoarthritis with findings suggestive of erosive osteoarthritis involving the distal interphalangeal joints of the index and middle fingers and great degree of erosive osteoarthritis involving the proximal interphalangeal joint of the right ring finger. Mild subcutaneous soft tissue swelling of the dorsal aspect of the hand, that should x-rays of the right hand. ASSESSMENT AND PLAN: 1. Deconditioning general weakness. 2. Leg cellulitis. 3. History of hypertension, currently not on antihypertensive. 4. Osteoarthritis 5. Hypothyroidism. 6. Neuropathic pain, restless leg syndrome. 7. Unsteady gait. The patient is admitted to [facility] for skilled rehabilitation. We will continue home medications as per list. We will complete oral antibiotic for 7 days. We will continue to observe and monitor her blood pressure. For some reason spironolactone was started in the hospital, but was not continued at this point. Current blood pressure is stable. We will monitor and consider to start antihypertensive if deemed indicated. PT, OT evaluate and treat. Estimated length of stay 1-2 weeks. CODE STATUS: Patient reports FULL CODE. Spouse concurs with the patient's wishes. ANTONIO
[2018-07-27] MEDS: Amitriptyline HCl 25 MG TAB PO SCH (21:10)
[2018-07-28] MEDS ORDERED: Gabapentin 300 MG CAP ONE (09:00)
[2018-07-28] MEDS ORDERED: Saccharomyces boulardii 250 MG CAP ONE (09:00)
[2018-07-28] MEDS: Levothyroxine Sodium 50 MCG TAB PO SCH (12:16)
[2018-07-28] MEDS: Saccharomyces boulardii 250 MG CAP PO SCH (12:16)
[2018-07-28] MEDS: Gabapentin 300 MG CAP PO SCH ×3 (12:16→20:51)
[2018-07-28] MEDS: tiZANidine HCl 4 MG TAB PO SCH ×2 (12:16→14:53)
[2018-07-28] MEDS: Emollient 15 oz bottle 450 ML, Triamcinolone Acetonide 200 MG TOP SCH ×2 (12:17→20:51)
[2018-07-28 12:18] LABS: ALT (SGPT) 25 U/L (8-55); AST (SGOT) 22 U/L (5-34); Albumin 3.2 g/dL (3.4-4.8); Alkaline Phosphatase 139 U/L (40-150); Anion Gap 12 mmol/L (10-20); BUN (Urea Nitrogen) 27 mg/dL (9.8-20.1); Bilirubin, Total 0.3 mg/dL (0.2-1.2); Calc. Creatinine Clearance 82 mL/min (70-130); Calcium 9.9 mg/dL (7.8-10.44); Carbon Dioxide 24 mmol/L (23-31); Chloride 110 mmol/L (98-107); Estimated GFR-MDRD 60; Glucose 101 mg/dL (80-115); Potassium 4.1 mmol/L (3.5-5.1); Protein, Total 6.2 g/dL (6.0-8.3); Sodium 142 mmol/L (136-145); Uric Acid 8.3 mg/dL (2.6-6.0)
[2018-07-28 13:03] LABS: %Lymphocytes 28.5 % (21.0-51.0); %Neutrophils 51.3 % (42.0-75.0); Hemoglobin 11.7 g/dL (12.0-16.0); Mean Corpuscular HGB CONC 32.7 g/dL (32.0-36.0); Mean Corpuscular Hemoglobin 29.8 pg (27.0-31.0); Mean Corpuscular Volume 91.1 fL (78.0-98.0); Mean Platelet Volume 7.3 fL (7.4-10.4); Platelet Count 334 thou/uL (130-400); RBC Distribution Width 12.4 % (11.5-14.5); Red Blood Cell (RBC) Count 3.92 mill/uL (4.20-5.40); White Blood Cell (WBC) Count 4.7 thou/uL (4.8-10.8)
[2018-07-28 13:04] LABS: #Eosinphils 0.2 thou/uL (0.0-0.7); #Lymphocytes 1.3 thou/uL (1.20-3.40); #Monocytes 0.7 thou/uL (0.11-0.59); #Neutrophils 2.4 thou/uL (1.40-6.50); %Eosinophils 4.8 % (0.0-10.0); %Monocytes 14.5 % (0.0-10.0)
[2018-07-28] MEDS ORDERED: Allopurinol 100 MG TAB PO SCH (15:00)
[2018-07-28] MEDS: Acetaminophen 325 MG TAB PO PRN (20:50)
[2018-07-28] MEDS: Amitriptyline HCl 25 MG TAB PO SCH (20:51)
[2018-07-29] MEDS: tiZANidine HCl 4 MG TAB PO SCH ×2 (05:12→15:04)
[2018-07-29] MEDS: Levothyroxine Sodium 50 MCG TAB PO SCH (05:12)
[2018-07-29] MEDS: Saccharomyces boulardii 250 MG CAP PO SCH (09:15)
[2018-07-29] MEDS: Allopurinol 100 MG TAB PO SCH (09:15)
[2018-07-29] MEDS: Gabapentin 300 MG CAP PO SCH ×3 (09:15→21:00)
[2018-07-29] MEDS: Emollient 15 oz bottle 450 ML, Triamcinolone Acetonide 200 MG TOP SCH ×2 (09:18→21:01)
[2018-07-29] MEDS: Amitriptyline HCl 25 MG TAB PO SCH (21:00)
[2018-07-30] MEDS: tiZANidine HCl 4 MG TAB PO SCH ×2 (05:43→15:01)
[2018-07-30] MEDS: Levothyroxine Sodium 50 MCG TAB PO SCH (05:43)
[2018-07-30] MEDS: Allopurinol 100 MG TAB PO SCH (09:07)
[2018-07-30] MEDS: Gabapentin 300 MG CAP PO SCH ×3 (09:07→20:32)
[2018-07-30] MEDS: Saccharomyces boulardii 250 MG CAP PO SCH (09:07)
[2018-07-30] MEDS: Emollient 15 oz bottle 450 ML, Triamcinolone Acetonide 200 MG TOP SCH ×2 (09:08→20:36)
[2018-07-30] MEDS: Acetaminophen 325 MG TAB PO PRN (20:32)
[2018-07-30] MEDS: Amitriptyline HCl 25 MG TAB PO SCH (20:32)
[2018-07-31] MEDS: Levothyroxine Sodium 50 MCG TAB PO SCH (05:19)
[2018-07-31] MEDS: tiZANidine HCl 4 MG TAB PO SCH ×2 (05:19→15:12)
[2018-07-31] MEDS: Allopurinol 100 MG TAB PO SCH (09:11)
[2018-07-31] MEDS: Emollient 15 oz bottle 450 ML, Triamcinolone Acetonide 200 MG TOP SCH ×2 (09:11→20:52)
[2018-07-31] MEDS: Gabapentin 300 MG CAP PO SCH ×3 (09:11→20:51)
[2018-07-31] MEDS: Saccharomyces boulardii 250 MG CAP PO SCH (09:11)
[2018-07-31] MEDS: hydrOXYzine 25 MG TAB PO PRN (11:17)
[2018-07-31] MEDS: Acetaminophen 325 MG TAB PO PRN (20:51)
[2018-07-31] MEDS: Amitriptyline HCl 25 MG TAB PO SCH (20:51)
[2018-08-01] MEDS: tiZANidine HCl 4 MG TAB PO SCH ×2 (05:29→14:55)
[2018-08-01] MEDS: Levothyroxine Sodium 50 MCG TAB PO SCH (05:29)
[2018-08-01] MEDS: Gabapentin 300 MG CAP PO SCH ×2 (08:30→14:55)
[2018-08-01] MEDS: Saccharomyces boulardii 250 MG CAP PO SCH (08:30)
[2018-08-01] MEDS: Emollient 15 oz bottle 450 ML, Triamcinolone Acetonide 200 MG TOP SCH (08:30)
[2018-08-01] MEDS: Allopurinol 100 MG TAB PO SCH (08:30)
[2018-08-01 09:06] VITALS: BP 139/78; TEMP 96.8
--- NOTE | 2018-08-03 07:55 | DIS ---
DATE OF ADMISSION: 07/26/2018 DATE OF DISCHARGE: 08/01/2018 REASON FOR ADMISSION: Deconditioning, general weakness in skilled rehabilitation in [facility]. CONDITION ON DISCHARGE: Stable. DISPOSITION: Home with . HOME MEDICATIONS: Allopurinol 100 mg p.o. daily, amitriptyline 25 mg p.o. daily, tizanidine 2 mg p.o . b.i.d., levothyroxine 50 mcg p.o. daily, Neurontin 300 mg p.o. t.i.d., Synthroid 50 mcg q.a.m., bis acodyl 10 mg per rectum p.r.n., Tylenol 650 mg p.o. q.6 hours p.r.n. DISCHARGE INSTRUCTIONS: DIET: Low-salt, low-fat. ACTIVITIES: To use rolling walker at all times. High risk for fall. FOLLOW UP: With Dr. Guevara PCP in 1-2 weeks. Appointment was made on 08/14/2018 at 9:30 a.m. To resume home health services with [facility] per request for penitentiary, PT, OT eval uate and treat. ER warnings. HISTORY OF PRESENT ILLNESS AND HOSPITAL COURSE: Ms. Beavers is a 68-year-old recently admitted from [facility] in [place] for severe deconditioning and leg cellulitis. Patient was treated with IV antibiotic that was subsequently shift to oral clindamycin prior to discharge. Penelope prieto this time, patient was also reported to have right hand swelling/osteoarthritis. Her uric acid at that time was elevated at 7.1. No treatment was recommended at that time. During her latest hospit alization, patient was also reported to have elevated systolic blood pressure in the 200s. She, of n ote, prior to this admission, patient followed up to her PCP and was restarted on spironolactone seco ndary to elevated blood pressure. For unknown reason, patient's spironolactone was started per repor t in [facility], but subsequently discontinued and was placed on clonidine p.r .n. Patient was subsequently admitted or transferred to [facility] on 07/26/2018 due to deconditioning and general weakness. She was referred to PT, OT, and made a slowly improvement with her overall functional activities. She was walking 50 feet prior to discharge using rolling walker. Patient was adamant to go home, thus she was discharged on 08/01/2018. She is recommended to contin ue rehab at home with home health. She requested for [facility] to continue their services with her at home. Of note, during her rehabilitation course, patient was not noted with any leg swe lling nor joint effusions, but she complains almost on a daily basis of joint pains mostly on her garcia ds, morning stiffness, and ankle pains. We repeated uric acid level and was noted to be elevated at this time to 8.3 on 07/28/2018. Patient was started on allopurinol based on the hyperuricemia diagno sis with symptoms. She did well over her remaining stay in the rehab with no significant recurrence of joint effusion or erythema of joints. She was discharged on 08/01/2018 per request in a stable co ndition. Of note, her blood pressure during this hospital stay remains stable. BP ranges between 11 5/45 to 150/68 averaging between 120s to 130s/70s. Clonidine had never been used. She is recommende d to continue BP monitoring at home. Vital signs prior to discharge, blood pressure 139/78, temperat ure 96.8, pulse 81, respirations 20, O2 sat 99%. Weight 206 pounds and 4 ounces, height 5 feet 5 inc hes. Further follow up with PCP to discuss further antihypertensive use versus diuretic use.
== END 2018-08-01 15:20 | disposition home health service (06) | DRG 948 ==
LOC: MADMS 13:47
PROVIDERS: ADMIT Family Medicine; ATTEND Family Medicine
DX: R53.1 Weakness (principal); L03.119 Cellulitis of unspecified part of limb; G25.81 Restless legs syndrome; E03.9 Hypothyroidism, unspecified; I25.10 Atherosclerotic heart disease of native coronary artery without angina pectoris; M10.9 Gout, unspecified; I10 Essential (primary) hypertension; M54.9 Dorsalgia, unspecified; G89.29 Other chronic pain; F41.9 Anxiety disorder, unspecified; M15.4 Erosive (osteo)arthritis; R26.81 Unsteadiness on feet
CPT/HCPCS: 80053; 84443; 84550; 85025; G8987-GO-CL; G8988-GO-CI; J3301

== ENCOUNTER 2018-10-13 19:50 | Inpatient (IN) | payer MEDICARE ==
[2018-10-13] MEDS ORDERED: Cepastat Lozenges 1 LOZ PO PRN (21:36)
[2018-10-13] MEDS ORDERED: Calcium Carbonate 500 MG ChewTAB PO PRN (21:36)
[2018-10-13] MEDS ORDERED: Bisacodyl 5 MG TAB PO PRN (21:36)
[2018-10-13] MEDS ORDERED: Artificial Tear Sol 15 ML BOT EA EYE PRN (21:36)
[2018-10-13] MEDS ORDERED: Sodium Chloride 0.65% Nasal 44 ML BOT EA NARE PRN (21:40)
[2018-10-13] MEDS ORDERED: Amitriptyline HCl 25 MG TAB PO SCH (22:15)
[2018-10-13] MEDS ORDERED: tiZANidine HCl 4 MG TAB PO SCH (22:15)
[2018-10-13] MEDS ORDERED: Famotidine 20 MG TAB PO SCH (22:15)
[2018-10-13] MEDS ORDERED: Ciprofloxacin 500 MG TAB PO SCH (22:15)
[2018-10-13] MEDS ORDERED: Gabapentin 300 MG CAP PO SCH (22:15)
[2018-10-13] MEDS: Gabapentin 300 MG CAP PO SCH (22:23)
[2018-10-14] MEDS: Levothyroxine Sodium 50 MCG TAB PO SCH (05:41)
[2018-10-14] MEDS ORDERED: Non-Formulary Item 1 EACH (Omeprazole [Omeprazole] 20 MG) PO SCH (09:00)
[2018-10-14] MEDS: Famotidine 20 MG TAB PO SCH ×2 (09:24→20:10)
[2018-10-14] MEDS: Atorvastatin Calcium 10 MG TAB PO SCH (09:25)
[2018-10-14] MEDS: Gabapentin 300 MG CAP PO SCH ×3 (09:25→20:10)
[2018-10-14] MEDS: Saccharomyces boulardii 250 MG CAP PO SCH (09:26)
[2018-10-14] MEDS: Allopurinol 100 MG TAB PO SCH (09:26)
[2018-10-14] MEDS: Ciprofloxacin 500 MG TAB PO SCH ×2 (09:26→20:09)
[2018-10-14] MEDS: Aspirin 81 mg Enteric Coated Tablet PO SCH (09:26)
[2018-10-14] MEDS: Acetaminophen 325 MG TAB PO PRN (11:02)
--- NOTE | 2018-10-14 18:20 | HP ---
PRIMARY CARE PHYSICIAN: Dr. Ajith Rodriguez in [place]. REASON FOR ADMISSION: Swing bed in [place] for skilled rehab post hospitalization. HISTORY OF PRESENT ILLNESS AND HOSPITAL COURSE: Ms. Beavers is a 68-year-old female, who was admitted at [facility] on 10/08/2018 for altered mental status. Her chest x-ray was unremarkable. Her CT of the brain was negative for any acute process. It only showed age-related volume loss. Her EKG showed RBB, otherwise no acute ischemia. Her routine lab test was unremarkable except for the urine findings suggestive of UTI. Her acute encephalopathy was deemed related to UTI. She was treated empirically with IV antibiotic therapy at that time. The patient's condition improved and her mental status likelwise improved, now deemed at baseline. She has generalized weakness and physical deconditioning, recommending further skilled rehabilitation prior to going back to the home environment, thus she was transferred to [place] swing [facility] for these purposes. When seen today, the patient appears to have no idea why she was hospitalized. She is also unsure why she is in [place] swing bed at this point. Her is at bedside and could not contribute for any further information. Most of te information we gathered was from the medical records from [facility]. At this point, the patient admits that she remains generally weak and could hardly move around. After explaining to the patient what happened and with her current diagnosis and treatment and purpose why she was transferred to [place] skilled rehab, the patient verbalizes full understanding and agreed to proceed with the rehab. PAST MEDICAL HISTORY: 1. Hypothyroidism. 2. There was a remote history of hypertension. 3. Gout. 4. Coronary artery disease. 5. Restless legs syndrome. 6. Chronic low back pain, previously followed by pain management in [place]. 7. Morbid obesity. 8. Neuropathic pain. 9. Poor memory. 10. History of anxiety. PAST SURGICAL HISTORY: Unremarkable. SOCIAL HISTORY: . Nonsmoker, nonalcoholic drinker. Denies illicit drug use. She is a full code and her is her surrogate decision maker. FAMILY HISTORY: Noncontributory. ALLERGIES: SULFA. CURRENT MEDICATIONS: 1. Amitriptyline 25 mg p.o. nightly. 2. Acetaminophen 650 mg p.o. q.6 hours p.r.n. 3. Allopurinol 100 mg p.o. daily. 4. Artificial Tears p.r.n. 5. Aspirin 81 mg p.o. daily. 6. Atorvastatin 40 mg p.o. daily. 7. Cipro 500 mg p.o. b.i.d. for 5 more days. 8. Gabapentin 600 mg p.o. t.i.d. 9. Levothyroxine 50 p.o. q.a.m. 10. Pantoprazole 40 mg p.o. b.i.d. 11. Florastor 250 mg p.o. daily. 12. Tizanidine 2 mg p.o. nightly. REVIEW OF SYSTEMS: GENERAL: Denies fever or chills. Reports general weakness and malaise. HEENT: No acute visual changes, hearing changes, or cold symptoms. RESPIRATORY: No chronic cough, sputum production, wheezing, or shortness of breath. CARDIAC: No chest pain, palpitations, or edema. Dyspnea on exertion. GASTROINTESTINAL: No nausea, vomiting, abdominal pain, rectal bleeding, black tarry stools. She reports constipation and reflux symptoms. GENITOURINARY: No dysuria, hematuria, incontinence, or frequency. MUSCULOSKELETAL: Reports chronic low back pain, intermittent joint pain/gouty arthropathy and intermittent myalgia. SKIN: No rashes. No lesions. PSYCHIATRIC: Reports anxiety. No depression. No hallucinations. No insomnia. NEUROLOGIC: No focal numbness or focal weakness. History of poor memory/memory gap. No tics, tremors, or seizure activities. PHYSICAL EXAMINATION: VITAL SIGNS: Blood pressure 144/76, temperature 97.7, pulse 78, respirations 18 , and O2 saturation is 95%. Weight 201 pounds and 9 ounces. Height 5 feet. GENERAL: The patient is awake, alert, and oriented x3, not in distress, comfortable on exam. HEENT: Normocephalic and atraumatic. PERRL. Intact EOM. Anicteric sclerae. Oral mucosa is moist. NECK: Supple. No LAD. No JVD. No bruits. CHEST: Normal excursion. Clear to auscultation bilaterally. CARDIAC: RRR. Normal S1 and S2. No murmurs. ABDOMEN: Flat and soft. Normoactive bowel sounds. Nondistended and nontender. No rebound. No guarding. Negative CVA tenderness bilaterally. EXTREMITIES: No edema. No cyanosis. No joint effusion. No erythema. No rashes. NEUROLOGIC: Nonfocal. DTRs 2+. Gait, unsteady. PSYCHIATRIC: Appears calm with appropriate demeanor and affect. ASSESSMENT: 1. Deconditioning. 2. General weakness. 3. Urinary tract infection. 4. Altered mental status secondary to urinary tract infection, improved. Now, mental status is back to baseline. 5. Neuropathic pain. 6. Gouty arthropathy. 7. Morbid obesity. 8. Hypothyroidism. 9. Restless legs syndrome. 10. Chronic GERD. 11. Unsteady gait. PLAN: The patient is admitted to [facility] for purposes of inpatient rehab in order to gain modified independence in her gait and ADL skills prior to returning to the home environment. We will continue all current medications as modified per list. To complete oral antibiotic therapy as directed. PT consult to gain modified independence in mobility and household ambulation with a rolling walker at least. Weightbearing as tolerated. OT consult to gain modified independence of self-care ADL skills. We will continue to monitor the patient for any medical comorbidities that may interfere with her rehab progress. GI prophylaxis with PPI. DVT prophylaxis with Compression stockings ESTIMATED LENGTH OF STAY: 1 to 2 weeks. DISPOSITION: home with . May need homehealth services post discharge. CODE STATUS: The patient reports " to do everything to revive her back" in the presence of her , who acts as her surrogate decision maker. Then from there, spouse will decide for any changes. concurs with the patient's wishes. We will order FULL CODE, both patient and spouse were into agreement. Job ID: [id number] [facility]
[2018-10-14] MEDS: tiZANidine HCl 4 MG TAB PO SCH (20:10)
[2018-10-14] MEDS: Amitriptyline HCl 25 MG TAB PO SCH (20:10)
[2018-10-14] MEDS ORDERED: Prevnar 13-Val Conj/PF 0.5 ML SYRINGE IM ONE (21:00)
[2018-10-15] MEDS: Levothyroxine Sodium 50 MCG TAB PO SCH (05:29)
[2018-10-15] MEDS: Gabapentin 300 MG CAP PO SCH ×3 (08:55→21:36)
[2018-10-15] MEDS: Saccharomyces boulardii 250 MG CAP PO SCH (08:55)
[2018-10-15] MEDS: Acetaminophen 325 MG TAB PO PRN ×2 (08:55→14:49)
[2018-10-15] MEDS: Famotidine 20 MG TAB PO SCH ×2 (08:55→21:36)
[2018-10-15] MEDS: Ciprofloxacin 500 MG TAB PO SCH ×2 (08:55→21:36)
[2018-10-15] MEDS: Atorvastatin Calcium 10 MG TAB PO SCH (08:55)
[2018-10-15] MEDS: Allopurinol 100 MG TAB PO SCH (08:56)
[2018-10-15] MEDS: Aspirin 81 mg Enteric Coated Tablet PO SCH (08:56)
[2018-10-15] MEDS: Amitriptyline HCl 25 MG TAB PO SCH (21:36)
[2018-10-15] MEDS: tiZANidine HCl 4 MG TAB PO SCH (21:37)
[2018-10-16] MEDS: Levothyroxine Sodium 50 MCG TAB PO SCH (05:21)
[2018-10-16] MEDS: Acetaminophen 325 MG TAB PO PRN ×3 (06:13→21:48)
[2018-10-16] MEDS: Atorvastatin Calcium 10 MG TAB PO SCH (10:16)
[2018-10-16] MEDS: Famotidine 20 MG TAB PO SCH ×2 (10:17→20:21)
[2018-10-16] MEDS: Aspirin 81 mg Enteric Coated Tablet PO SCH (10:17)
[2018-10-16] MEDS: Gabapentin 300 MG CAP PO SCH ×3 (10:17→20:21)
[2018-10-16] MEDS: Allopurinol 100 MG TAB PO SCH (10:17)
[2018-10-16] MEDS: Saccharomyces boulardii 250 MG CAP PO SCH (10:17)
[2018-10-16] MEDS: Ciprofloxacin 500 MG TAB PO SCH ×2 (10:17→20:21)
--- NOTE | 2018-10-16 15:53 | RAD ---
RIGHT ANKLE TWO VIEWS: 10/16/2018 HISTORY: Pain in the right foot when standing. FINDINGS: The entire foot was not visualized on the lateral view, but there does appear to be pes planus deform ity. There are degenerative changes involving the talonavicular joint and the tarsal bones. The ank le mortise is congruent. There is no fracture or dislocation appreciated. A plantar calcaneal enthe sophyte is identified. There is subcutaneous soft tissue swelling at the lateral aspect of the ankle with minimal soft tissu e swelling involving the remainder of the ankle. There is a tiny, punctate, radiopaque density seen just lateral to the midfoot, which could be artifa ctual, but a radiopaque foreign body cannot be excluded. This is not appreciated on the lateral proj ection. IMPRESSION: 1. Degenerative changes involving the midfoot. 2. No acute fracture. 3. Subcutaneous soft tissue swelling. 4. Questionable punctate radiopaque foreign body, lateral aspect foot, at the level of the midfoot. POS: DOROTHY
--- NOTE | 2018-10-16 15:56 | RAD ---
RIGHT FOOT THREE VIEWS: 10/16/2018 HISTORY: Pain on standing. Heel pain. FINDINGS: There is a plantar calcaneal enthesophyte noted. Degenerative changes are seen involving the midfoot . There is suggestion of pes planus deformity on the recent views of the ankle, but the suggested pe s planus deformity is less striking on this exam. There is a fracture involving the base of the proximal phalanx of the small toe. No additional fract ure is appreciated on this exam. The base of the metatarsals are obscured on the AP projection, due to prominent overlying subcutaneous soft tissue swelling at the dorsal aspect of the foot and at the ankle. The toes are held in extension at the metacarpophalangeal joints, which also limits evaluatio n. IMPRESSION: 1. Mildly and displaced fracture involving the base of the proximal phalanx, right small t oe. 2. Limited evaluation of the Lisfranc joint. 3. No additional fracture or dislocation is seen. 4. Degenerative changes at the level of the tarsal bones. 5. Prominent subcutaneous soft tissue swelling at the dorsal aspect of the foot and at the level of the ankle. POS: DOROTHY
[2018-10-16] MEDS ORDERED: CONFIRM ALL DAY 1 DOSES ARE TIMED FOR DAY 1 FS SCH (16:30)
[2018-10-16] MEDS: methylPREDNISolone 4 mg Tablet PO SCH ×2 (17:08→20:20)
[2018-10-16] MEDS: tiZANidine HCl 4 MG TAB PO SCH (20:20)
[2018-10-16] MEDS: Amitriptyline HCl 25 MG TAB PO SCH (20:21)
[2018-10-17] MEDS: Acetaminophen 325 MG TAB PO PRN (05:24)
[2018-10-17] MEDS: Levothyroxine Sodium 50 MCG TAB PO SCH (05:24)
[2018-10-17] MEDS: Ciprofloxacin 500 MG TAB PO SCH ×2 (08:24→20:26)
[2018-10-17] MEDS: Famotidine 20 MG TAB PO SCH ×2 (08:24→20:25)
[2018-10-17] MEDS: Aspirin 81 mg Enteric Coated Tablet PO SCH (08:24)
[2018-10-17] MEDS: Saccharomyces boulardii 250 MG CAP PO SCH (08:24)
[2018-10-17] MEDS: Atorvastatin Calcium 10 MG TAB PO SCH (08:24)
[2018-10-17] MEDS: Allopurinol 100 MG TAB PO SCH (08:25)
[2018-10-17] MEDS: methylPREDNISolone 4 mg Tablet PO SCH ×3 (08:25→17:53)
[2018-10-17] MEDS: Gabapentin 300 MG CAP PO SCH ×3 (08:26→20:25)
[2018-10-17] MEDS: tiZANidine HCl 4 MG TAB PO SCH (20:24)
[2018-10-17] MEDS: Amitriptyline HCl 25 MG TAB PO SCH (20:25)
[2018-10-17] MEDS ORDERED: methylPREDNISolone 4 mg Tablet PO SCH (21:00)
[2018-10-18] MEDS: Acetaminophen 325 MG TAB PO PRN ×4 (01:27→22:18)
[2018-10-18] MEDS: Levothyroxine Sodium 50 MCG TAB PO SCH (05:18)
[2018-10-18] MEDS: methylPREDNISolone 4 mg Tablet PO SCH ×5 (08:06→20:38)
[2018-10-18] MEDS: Atorvastatin Calcium 10 MG TAB PO SCH (08:06)
[2018-10-18] MEDS: Allopurinol 100 MG TAB PO SCH (08:06)
[2018-10-18] MEDS: Famotidine 20 MG TAB PO SCH ×2 (08:07→20:39)
[2018-10-18] MEDS: Saccharomyces boulardii 250 MG CAP PO SCH (08:07)
[2018-10-18] MEDS: Aspirin 81 mg Enteric Coated Tablet PO SCH (08:07)
[2018-10-18] MEDS: Gabapentin 300 MG CAP PO SCH ×3 (08:07→20:38)
[2018-10-18] MEDS: Ciprofloxacin 500 MG TAB PO SCH ×2 (08:07→20:38)
[2018-10-18] MEDS: Amitriptyline HCl 25 MG TAB PO SCH (20:38)
[2018-10-18] MEDS: tiZANidine HCl 4 MG TAB PO SCH (20:38)
[2018-10-19] MEDS: Levothyroxine Sodium 50 MCG TAB PO SCH (05:44)
[2018-10-19] MEDS: Allopurinol 100 MG TAB PO SCH (08:20)
[2018-10-19] MEDS: Aspirin 81 mg Enteric Coated Tablet PO SCH (08:20)
[2018-10-19] MEDS: Ciprofloxacin 500 MG TAB PO SCH ×2 (08:20→20:55)
[2018-10-19] MEDS: Atorvastatin Calcium 10 MG TAB PO SCH (08:20)
[2018-10-19] MEDS: methylPREDNISolone 4 mg Tablet PO SCH ×3 (08:20→17:05)
[2018-10-19] MEDS: Saccharomyces boulardii 250 MG CAP PO SCH (08:20)
[2018-10-19] MEDS: Famotidine 20 MG TAB PO SCH ×2 (08:20→20:55)
[2018-10-19] MEDS: Gabapentin 300 MG CAP PO SCH ×3 (08:20→20:55)
[2018-10-19] MEDS: Acetaminophen 325 MG TAB PO PRN ×2 (08:23→14:30)
[2018-10-19 16:41] VITALS: BMI 40.3
[2018-10-19] MEDS: tiZANidine HCl 4 MG TAB PO SCH (20:55)
[2018-10-19] MEDS: Amitriptyline HCl 25 MG TAB PO SCH (20:55)
[2018-10-20] MEDS: Levothyroxine Sodium 50 MCG TAB PO SCH (05:55)
[2018-10-20] MEDS: Aspirin 81 mg Enteric Coated Tablet PO SCH (08:33)
[2018-10-20] MEDS: methylPREDNISolone 4 mg Tablet PO SCH ×2 (08:33→17:01)
[2018-10-20] MEDS: Atorvastatin Calcium 10 MG TAB PO SCH (08:33)
[2018-10-20] MEDS: Saccharomyces boulardii 250 MG CAP PO SCH (08:33)
[2018-10-20] MEDS: Allopurinol 100 MG TAB PO SCH (08:34)
[2018-10-20] MEDS: Famotidine 20 MG TAB PO SCH ×2 (08:34→21:12)
[2018-10-20] MEDS: Gabapentin 300 MG CAP PO SCH ×3 (08:34→21:13)
[2018-10-20] MEDS: Acetaminophen 325 MG TAB PO PRN (10:09)
[2018-10-20] MEDS: Amitriptyline HCl 25 MG TAB PO SCH (21:12)
[2018-10-20] MEDS: tiZANidine HCl 4 MG TAB PO SCH (21:13)
[2018-10-21] MEDS: Acetaminophen 325 MG TAB PO PRN ×2 (01:00→14:18)
[2018-10-21] MEDS: Levothyroxine Sodium 50 MCG TAB PO SCH (05:44)
[2018-10-21] MEDS ORDERED: methylPREDNISolone 4 mg Tablet PO SCH (08:00)
[2018-10-21] MEDS: Gabapentin 300 MG CAP PO SCH ×3 (08:45→20:13)
[2018-10-21] MEDS: Famotidine 20 MG TAB PO SCH ×2 (08:45→20:13)
[2018-10-21] MEDS: Aspirin 81 mg Enteric Coated Tablet PO SCH (08:46)
[2018-10-21] MEDS: Atorvastatin Calcium 10 MG TAB PO SCH (08:46)
[2018-10-21] MEDS: Allopurinol 100 MG TAB PO SCH (08:46)
[2018-10-21] MEDS: Saccharomyces boulardii 250 MG CAP PO SCH (08:46)
[2018-10-21] MEDS: tiZANidine HCl 4 MG TAB PO SCH (20:13)
[2018-10-21] MEDS: Amitriptyline HCl 25 MG TAB PO SCH (20:13)
[2018-10-22] MEDS: Acetaminophen 325 MG TAB PO PRN ×2 (00:45→16:08)
[2018-10-22] MEDS: Levothyroxine Sodium 50 MCG TAB PO SCH (05:35)
[2018-10-22] MEDS: Allopurinol 100 MG TAB PO SCH (08:23)
[2018-10-22] MEDS: Famotidine 20 MG TAB PO SCH ×2 (08:23→20:24)
[2018-10-22] MEDS: Atorvastatin Calcium 10 MG TAB PO SCH (08:23)
[2018-10-22] MEDS: Aspirin 81 mg Enteric Coated Tablet PO SCH (08:23)
[2018-10-22] MEDS: Gabapentin 300 MG CAP PO SCH ×3 (08:23→20:24)
[2018-10-22] MEDS: Saccharomyces boulardii 250 MG CAP PO SCH (08:24)
[2018-10-22] MEDS: tiZANidine HCl 4 MG TAB PO SCH (20:24)
[2018-10-22] MEDS: Amitriptyline HCl 25 MG TAB PO SCH (20:24)
[2018-10-23] MEDS: Acetaminophen 325 MG TAB PO PRN ×3 (01:39→22:46)
[2018-10-23] MEDS: Levothyroxine Sodium 50 MCG TAB PO SCH (05:07)
[2018-10-23] MEDS: Famotidine 20 MG TAB PO SCH ×2 (09:12→20:38)
[2018-10-23] MEDS: Saccharomyces boulardii 250 MG CAP PO SCH (09:12)
[2018-10-23] MEDS: Gabapentin 300 MG CAP PO SCH ×3 (09:12→20:38)
[2018-10-23] MEDS: Aspirin 81 mg Enteric Coated Tablet PO SCH (09:12)
[2018-10-23] MEDS: Atorvastatin Calcium 10 MG TAB PO SCH (09:12)
[2018-10-23] MEDS: Allopurinol 100 MG TAB PO SCH (09:13)
[2018-10-23] MEDS: Amitriptyline HCl 25 MG TAB PO SCH (20:38)
[2018-10-23] MEDS: tiZANidine HCl 4 MG TAB PO SCH (20:38)
[2018-10-24] MEDS: Acetaminophen 325 MG TAB PO PRN (04:40)
[2018-10-24] MEDS: Levothyroxine Sodium 50 MCG TAB PO SCH (06:02)
[2018-10-24] MEDS: Gabapentin 300 MG CAP PO SCH ×3 (09:12→20:42)
[2018-10-24] MEDS: Famotidine 20 MG TAB PO SCH ×2 (09:12→20:42)
[2018-10-24] MEDS: Allopurinol 100 MG TAB PO SCH (09:12)
[2018-10-24] MEDS: Aspirin 81 mg Enteric Coated Tablet PO SCH (09:12)
[2018-10-24] MEDS: Saccharomyces boulardii 250 MG CAP PO SCH (09:12)
[2018-10-24] MEDS: Atorvastatin Calcium 10 MG TAB PO SCH (09:12)
[2018-10-24] MEDS: tiZANidine HCl 4 MG TAB PO SCH (20:41)
[2018-10-24] MEDS: Amitriptyline HCl 25 MG TAB PO SCH (20:42)
[2018-10-25] MEDS: Acetaminophen 325 MG TAB PO PRN ×2 (02:21→09:29)
[2018-10-25] MEDS: Levothyroxine Sodium 50 MCG TAB PO SCH (05:57)
[2018-10-25] MEDS: Famotidine 20 MG TAB PO SCH ×2 (08:35→20:52)
[2018-10-25] MEDS: Aspirin 81 mg Enteric Coated Tablet PO SCH (08:35)
[2018-10-25] MEDS: Allopurinol 100 MG TAB PO SCH (08:35)
[2018-10-25] MEDS: Saccharomyces boulardii 250 MG CAP PO SCH (08:35)
[2018-10-25] MEDS: Gabapentin 300 MG CAP PO SCH ×3 (08:36→20:52)
[2018-10-25] MEDS: Atorvastatin Calcium 10 MG TAB PO SCH (08:36)
[2018-10-25] MEDS: tiZANidine HCl 4 MG TAB PO SCH (20:52)
[2018-10-25] MEDS: Amitriptyline HCl 25 MG TAB PO SCH (20:52)
[2018-10-26] MEDS: Acetaminophen 325 MG TAB PO PRN ×2 (05:51→15:30)
[2018-10-26] MEDS: Levothyroxine Sodium 50 MCG TAB PO SCH (05:51)
[2018-10-26] MEDS: Allopurinol 100 MG TAB PO SCH (08:33)
[2018-10-26] MEDS: Gabapentin 300 MG CAP PO SCH ×3 (08:33→20:15)
[2018-10-26] MEDS: Saccharomyces boulardii 250 MG CAP PO SCH (08:33)
[2018-10-26] MEDS: Aspirin 81 mg Enteric Coated Tablet PO SCH (08:33)
[2018-10-26] MEDS: Famotidine 20 MG TAB PO SCH ×2 (08:33→20:15)
[2018-10-26] MEDS: Atorvastatin Calcium 10 MG TAB PO SCH (08:33)
[2018-10-26] MEDS: tiZANidine HCl 4 MG TAB PO SCH (20:15)
[2018-10-26] MEDS: Amitriptyline HCl 25 MG TAB PO SCH (20:16)
[2018-10-27] MEDS: Acetaminophen 325 MG TAB PO PRN (00:35)
[2018-10-27] MEDS: Levothyroxine Sodium 50 MCG TAB PO SCH (05:39)
[2018-10-27] MEDS: Allopurinol 100 MG TAB PO SCH (08:44)
[2018-10-27] MEDS: Saccharomyces boulardii 250 MG CAP PO SCH (08:44)
[2018-10-27] MEDS: Atorvastatin Calcium 10 MG TAB PO SCH (08:44)
[2018-10-27] MEDS: Gabapentin 300 MG CAP PO SCH (08:44)
[2018-10-27] MEDS: Famotidine 20 MG TAB PO SCH (08:45)
[2018-10-27] MEDS: Aspirin 81 mg Enteric Coated Tablet PO SCH (08:45)
[2018-10-27 08:46] VITALS: BP 148/77; TEMP 97.1
--- NOTE | 2018-10-28 23:12 | DIS ---
DATE OF ADMISSION: 10/13/2018 DATE OF DISCHARGE: 10/27/2018 ATTENDING PHYSICIAN: Dr. Chang. PRIMARY CARE PHYSICIAN: Dr. Ajith Rodriguez in [place]. REASON FOR ADMISSION: Swing bed in [place] for skilled rehab post hospitalization. DISPOSITION: Home with spouse. CONDITION ON DISCHARGE: Stable. HOME MEDICATIONS: 1. Amitriptyline 25 mg p.o. at bedtime. 2. Acetaminophen 650 mg p.o. q.6 hours p.r.n. 3. Allopurinol 100 mg p.o. daily. 4. Artificial Tears p.r.n. 5. Aspirin 81 mg p.o. daily. 6. Atorvastatin 40 mg p.o. at bedtime. 7. Gabapentin 600 mg p.o. t.i.d. 8. Levothyroxine 50 mcg p.o. q.a.m. 9. Tizanidine 2 mg p.o. at bedtime. DIET: Regular. ACTIVITY: Use rolling walker at all times. SPECIAL INSTRUCTIONS: To use boot, brace if pain persists. DIAGNOSES: 1. Deconditioning/general weakness. 2. Degenerative joint disease of the right foot. 3. Closed fracture of the right fifth toe. 4. Urinary tract infection, treated. 5. Altered mental status secondary to urinary tract infection, improved. 6. History of unsteady gait. SECONDARY DIAGNOSES: 1. Neuropathic pain. 2. Gouty arthropathy. 3. Hypothyroidism. 4. Restless legs syndrome. 5. Morbid obesity. FOLLOWUP INSTRUCTIONS: Follow up with PCP, Dr. Ajith Rodriguez, on 11/07/2018 at 3:30 p.m. Referred back to [facility] to resume home health services for PT, OT , and medications of provision. HISTORY OF PRESENT ILLNESS AND HOSPITAL COURSE: Ms. Beavers is a 68-year-old female, who was admitted to [facility] initially on 10/08 for altered mental status. Her chest x-ray at that time was unremarkable. Her CT of the brain was negative for any acute process at that time. CT of the brain only showed age-related volume loss. Her EKG showed RBB , otherwise no acute ischemia at that time. Her routine lab works were unremarkable except for the urine findings that is suggestive of UTI. Her acute encephalopathy was deemed related to the UTI that is treated empirically with IV antibiotic therapy. Over the course , the patient's condition improved. Her mental status was reported to be at baseline, but she remains generally weak. She was transferred to [facility] for purposes of skilled rehab post hospitalization to gain modified independence in her gait and ADL skills prior to returning to the home environment. The patient has history of neuropathic pain, restless legs syndrome, and some unsteadiness in her gait. During her rehab course, she initially reported an acute onset of right foot/ankle pain limiting her to cooperate completely in rehab. There was no reported fall/injury or trauma during her hospital stay. X-ray of the right foot and ankle on 10/16/2018 showed mildly and displaced fracture involving the base of the proximal phalanx of the right small toe. There was also a degenerative changes of the level of the tarsal bones and prominent subcutaneous soft tissue swelling at the dorsal aspect of the foot at the level of the ankle. Of note, the patient has history of gouty arthropathy. There was no significant obvious joint swelling, foot/ankle joint effusion noted clinically at that time. The patient was treated with antiinflammatory and she started wearing right foot brace. The patient reports marked improvement of the pain with short-term course of oral steroid. She was walking about 250 feet prior to discharge. She was using a rolling walker when ambulating and is recommended to continue the assistive device even at home. Overall, the patient made some progress with her therapy, but therapy goal has not met completely t, thusprior to discharge. She is deemed to benefit further for continued therapy at home via home health. On 10/27/2018, the patient is adamant to go home and her , who will serve as her primary rn staffing, is comfortable and agreeable with the patient's decision - discharge. Vital signs prior to discharge; blood pressure 148/77, temp 97.1, pulse 91, respirations 20, and O2 saturation 100% at room air. Weight 214 pounds and 4 ounces. Height 5 feet. Job ID: [id number] [facility]
== END 2018-10-27 10:52 | disposition home health service (06) | DRG 543 ==
LOC: MADMS 19:50
PROVIDERS: ADMIT Family Medicine; ATTEND Family Medicine
DX: M84.477A Pathological fracture, right toe(s), initial encounter for fracture (principal); N39.0 Urinary tract infection, site not specified; Z68.41 Body mass index [BMI] 40.0-44.9, adult; R53.81 Other malaise; E03.9 Hypothyroidism, unspecified; I25.10 Atherosclerotic heart disease of native coronary artery without angina pectoris; G25.81 Restless legs syndrome; I10 Essential (primary) hypertension; G89.29 Other chronic pain; M54.5 Low back pain; E66.01 Morbid (severe) obesity due to excess calories; F41.9 Anxiety disorder, unspecified; R53.1 Weakness; M79.2 Neuralgia and neuritis, unspecified; K21.9 Gastro-esophageal reflux disease without esophagitis; R26.81 Unsteadiness on feet; M19.071 Primary osteoarthritis, right ankle and foot; Z79.82 Long term (current) use of aspirin; Z79.899 Other long term (current) drug therapy
CPT/HCPCS: 90471; 90670; G0009; G8987-GO-CM; G8988-GO-CI

== ENCOUNTER 2020-02-21 08:56 | Emergency (ER) | payer MEDICARE ==
--- NOTE | 2020-02-21 10:08 | RAD ---
Exam: Chest one view HISTORY:Dyspnea Comparison: 09/20/2019 FINDINGS: Cardiac silhouette: Normal Aorta: Unremarkable Pulmonary vessels: Normal Costophrenic angles: Clear LUNGS: No masses or consolidation. Pneumothorax: None Osseous abnormalities: None Incidentals: Dorsal column stimulators are redemonstrated. IMPRESSION: No acute cardiopulmonary process.
[2020-02-21] MEDS ORDERED: Aspirin Chewable 81 MG TAB ONE (10:21)
[2020-02-21] MEDS ORDERED: Furosemide 40 MG/4 ML VIAL ONE (10:21)
[2020-02-21 10:55] LABS: ALT (SGPT) 21 U/L (8-55); AST (SGOT) 20 U/L (5-34); Albumin 4.5 g/dL (3.4-4.8); Alkaline Phosphatase 177 U/L (40-110); Anion Gap 17 mmol/L (10-20); BUN (Urea Nitrogen) 16 mg/dL (9.8-20.1); CK (CPK) 22 U/L (29-168); Calc. Creatinine Clearance 0 mL/min (70-130); Calcium 9.6 mg/dL (7.8-10.44); Carbon Dioxide 23 mmol/L (23-31); Chloride 106 mmol/L (98-107); Estimated GFR-MDRD 62; Globulin 3.1 g/dL (2.4-3.5); Glucose 100 mg/dL (83-110); Potassium 3.9 mmol/L (3.5-5.1); Protein, Total 7.6 g/dL (6.0-8.3); Sodium 142 mmol/L (136-145)
[2020-02-21 11:01] LABS: Band 2 % (5-11); Hemoglobin 15.3 g/dL (12.0-16.0); Lymphocytes 22 % (21-51); MDiff Complete? YES; Mean Corpuscular HGB CONC 32.5 g/dL (32.0-36.0); Mean Corpuscular Hemoglobin 30.5 pg (27.0-31.0); Mean Corpuscular Volume 93.8 fL (78.0-98.0); Mean Platelet Volume 8.1 fL (7.4-10.4); Metamyelocyte 1 % (0-0); Monocytes 8 % (0-10); Neutrophil 65 % (42-75); Platelet Count 190 thou/uL (130-400); Platelet Morphology Comment Appears Adequate; RBC Distribution Width 12.7 % (11.5-14.5); RBC Morphology Normal; Reactive Lymphocytes 2 % (0-10); Red Blood Cell (RBC) Count 5.02 mill/uL (4.20-5.40); White Blood Cell (WBC) Count 5.2 thou/uL (4.8-10.8)
== END 2020-02-21 12:10 | disposition home or self-care (01) ==
LOC: MADERS 08:56
DX: I11.0 Hypertensive heart disease with heart failure (principal); I50.9 Heart failure, unspecified; E10.9 Type 1 diabetes mellitus without complications; J44.9 Chronic obstructive pulmonary disease, unspecified; M10.9 Gout, unspecified; I25.10 Atherosclerotic heart disease of native coronary artery without angina pectoris; Z79.899 Other long term (current) drug therapy
CPT/HCPCS: 71045; 80053; 82550; 83880; 84484; 85025; 96374; J1940

== ENCOUNTER 2020-05-07 17:45 | Emergency (ER) | payer MEDICARE ==
--- NOTE | 2020-05-07 18:58 | RAD ---
EXAM: CHEST ONE VIEW HISTORY: Dyspnea. Bilateral leg pain. Elevated blood pressure. COMPARISON: 02/21/2020 FINDINGS: Cardiac silhouette is magnified by projection but stable in size. Pulmonary vasculature is mildly inc reased. There is linear and slight patchy parenchymal density in the left midlung zone favored to represent subsegmental atelectasis. There is otherwise no consolidation or pleural effusion. Calcifie d granuloma right lung base is seen. Dorsal column stimulator leads overlie the thoracic spine. No other interval change. IMPRESSION: 1. Suggestion mild pulmonary vascular congestion. 2. Findings favored to represent subsegmental atelectasis left midlung zone. If the patient has signs or symptoms of pneumonitis, follow-up imaging is advised.
[2020-05-07 19:03] LABS: #Basophils 0.1 thou/uL (0.0-0.2); #Eosinphils 0.1 thou/uL (0.0-0.7); #Lymphocytes 1.2 thou/uL (1.20-3.40); #Monocytes 0.9 thou/uL (0.11-0.59); #Neutrophils 3.6 thou/uL (1.40-6.50); %Basophils 1.3 % (0.0-1.0); %Eosinophils 1.4 % (0.0-10.0); %Lymphocytes 20.4 % (21.0-51.0); %Monocytes 14.7 % (0.0-10.0); %Neutrophils 62.3 % (42.0-75.0); Hemoglobin 14.4 g/dL (12.0-16.0); Mean Corpuscular HGB CONC 30.6 g/dL (32.0-36.0); Mean Corpuscular Hemoglobin 29.2 pg (27.0-31.0); Mean Corpuscular Volume 95.4 fL (78.0-98.0); Mean Platelet Volume 7.9 fL (7.4-10.4); Platelet Count 214 thou/uL (130-400); RBC Distribution Width 13.2 % (11.5-14.5); Red Blood Cell (RBC) Count 4.93 mill/uL (4.20-5.40); White Blood Cell (WBC) Count 5.8 thou/uL (4.8-10.8)
[2020-05-07 19:19] LABS: Anion Gap 20 mmol/L (10-20); BUN (Urea Nitrogen) 14 mg/dL (9.8-20.1); Bilirubin, Total 1.1 mg/dL (0.2-1.2); Calc. Creatinine Clearance 0 mL/min (70-130); Calcium 9.1 mg/dL (7.8-10.44); Carbon Dioxide 19 mmol/L (23-31); Chloride 108 mmol/L (98-107); Estimated GFR-MDRD 64; Glucose 100 mg/dL (83-110); Potassium 4.1 mmol/L (3.5-5.1); Sodium 143 mmol/L (136-145)
[2020-05-07 19:20] LABS: ALT (SGPT) 19 U/L (8-55); AST (SGOT) 22 U/L (5-34); Alkaline Phosphatase 130 U/L (40-110)
[2020-05-07] MEDS ORDERED: Nitroglycerin 2% Ointment 1 INCH/1 GM Packet ONE (21:04)
[2020-05-07] MEDS ORDERED: Clindamycin 150 MG CAP ONE (21:04)
[2020-05-07] MEDS ORDERED: Furosemide 40 MG/4 ML VIAL ONE (21:04)
[2020-05-07] MEDS ORDERED: Nitroglycerin 0.4 MG TAB 1 EACH ONE (21:04)
== END 2020-05-07 23:22 | disposition short-term general hospital (02) ==
LOC: MADERS 17:45
DX: I11.0 Hypertensive heart disease with heart failure (principal); I50.9 Heart failure, unspecified; L03.116 Cellulitis of left lower limb; L03.115 Cellulitis of right lower limb; E11.9 Type 2 diabetes mellitus without complications; M10.9 Gout, unspecified; J44.9 Chronic obstructive pulmonary disease, unspecified; I25.10 Atherosclerotic heart disease of native coronary artery without angina pectoris; D64.9 Anemia, unspecified; Z79.899 Other long term (current) drug therapy
CPT/HCPCS: 71045; 80053; 83880; 84484; 85025; 93005; 96374; J1940